=== PATIENT | female | born 1955 | race Caucasian/White ===

== ENCOUNTER 2023-10-12 08:53 | Outpatient (CLI) | payer MEDICARE, SELFPAY ==
[2023-10-31 17:08] VITALS: BMI 26.9
--- NOTE | 2023-10-31 17:08 | WPDHOMESLEEP ---
Sleep Study - Home Unattended Date of Study: 10/12/23 Ordering Provider: Ivet Jiang, PABerny Interpreting Provider: Arlet Johansen, DO Home Sleep Study Type: Watch PAT Height: 1.63 m Weight: 71.214 kg Body Mass Index: 26.9 Neck Circumference (inches): 13.5 [place]: 3 Reason for Sleep Study Witnessed apneas by spouse Sleep History The patient is a 68-year-old female that had a sleep study ordered by her primary care for evaluation of sleep apnea. The patient denies awakening from sleep short of breath. She occasionally awakens at night with heartburn, belching or cough. She occasionally snores but is never loud enough that others complain. She rarely has trouble breathing when she has a cold. She denies waking up gasping for air throughout the night. She occasionally has breathing problems at night observed by herself or others. She rarely sweats excessively at night. She occasionally has heart palpitations or irregular heartbeats during the night. She denies falling asleep during the day and while driving. She denies sleep paralysis, cataplexy and hypnagogic / hypnopompic hallucinations. She denies having trouble at school or work due to sleepiness. She denies feeling afraid of going to sleep. She rarely has nightmares. She occasionally remembers her dreams. She rarely has thoughts racing through her mind. She rarely feels sad or depressed. She occasionally has anxiety. She occasionally has muscular tension. She rarely notices parts of her body jerk. She denies kicking during the night. She occasionally has crawling and aching feelings in her legs but denies having leg pain during the night. She occasionally grinds her teeth during sleep and occasionally awakens with morning jaw pain. She is frequently bothered by pain during the day but rarely awakened by pain during the night. She constantly wakes up feeling stiff in the morning. She constantly wakes up with sore or achy muscles. She constantly wakes up with pain in the neck, spine and other joints. She goes to bed between 9-10 p.m. on both weekdays and weekends. It takes her 10-15 minutes to fall asleep. She wakes up 1-2 times throughout the night to urinate and is able to fall back asleep within 5-10 minutes. She wakes up between 7-8 a.m. on both weekdays and weekends. She typically gets 7-8 hours of sleep per night. She does not stay in bed after waking up in the morning. She currently lives alone. She denies consuming any caffeinated beverages within 2 hours of bedtime. She denies engaging in physical exercise before bedtime. She will read and watch television before falling asleep. She denies taking naps in the afternoon or the evening. She consumes 2 cups of coffee per day. She denies tobacco and alcohol use. She uses an unspecified recreational drug. Sleep Procedure The sleep study was completed using EnWavePAT a technically adequate device with seven channels: peripheral arterial tone, actigraphy, body position, snore, respiratory movement, pulse oximetry, sleep staging, and heart rate. Prior to using the device, the patient received verbal and written instructions for its application and was provided with the help desk phone number for additional telephonic instruction with 24-hour availability of qualified personnel to answer questions. The study was scored using CMS guidelines. Sleep Architecture The total recording time is 9 hrs, 56 min. The total sleep time is 8 hrs, 30 min. Sleep latency is 25 minutes. REM latency is 207 minutes. The patient had 13 episodes of waking. Sleep architecture shows 6.4% deep sleep, 81.6% light sleep, and (as % Total Sleep Time) showed NREM (Light 81.6%; Deep 6.4%), and a 12.0% stage REM. The patient spent 73.3% of total sleep time in the supine position. Sleep efficiency was 85.57%. Respiratory Analysis The overall AHI (pAHI 4%:) is 20.9. The central AHI is 10.7. The AHI was 22.0 in NREM and 12.7 in REM sleep. The A
== END 2023-10-16 13:37 | disposition home or self-care (01) ==
LOC: ANHCSM 08:53
PROVIDERS: PCP Physician Assistant; Visit Provider Physician Assistant
DX: G47.31 Primary central sleep apnea (principal)
CPT/HCPCS: 95800

== ENCOUNTER 2023-12-06 09:24 | Outpatient (CLI) | payer MEDICARE, SELFPAY ==
[2023-12-26 16:21] VITALS: BMI 26.9
--- NOTE | 2023-12-26 16:21 | WPDSLEEPSTUD ---
Sleep Study Date of Study: 12/06/23 Ordering Provider: Ivet Jiang, MARCOS Interpreting Physician: Arlet Johansen, Sleep Study Type: CPAP Titration Height: 1.63 m Weight: 71.214 kg Body Mass Index: 26.9 Neck Circumference (inches): 13 [place]: 3 Reason for Sleep Study The patient had a WatchPAT home sleep test on 10/12/2023 that showed an overall AHI of 20.9, JACK of 10.7 and desaturation down to 86%. Sleep History The patient is a 68-year-old female that had a sleep study ordered by her primary care for evaluation of sleep apnea. The patient denies awakening from sleep short of breath. She occasionally awakens at night with heartburn, belching or cough. She occasionally snores but is never loud enough that others complain. She rarely has trouble breathing when she has a cold. She denies waking up gasping for air throughout the night. She occasionally has breathing problems at night observed by herself or others. She rarely sweats excessively at night. She occasionally has heart palpitations or irregular heartbeats during the night. She denies falling asleep during the day and while driving. She denies sleep paralysis, cataplexy and hypnagogic / hypnopompic hallucinations. She denies having trouble at school or work due to sleepiness. She denies feeling afraid of going to sleep. She rarely has nightmares. She occasionally remembers her dreams. She rarely has thoughts racing through her mind. She rarely feels sad or depressed. She occasionally has anxiety. She occasionally has muscular tension. She rarely notices parts of her body jerk. She denies kicking during the night. She occasionally has crawling and aching feelings in her legs but denies having leg pain during the night. She occasionally grinds her teeth during sleep and occasionally awakens with morning jaw pain. She is frequently bothered by pain during the day but rarely awakened by pain during the night. She constantly wakes up feeling stiff in the morning. She constantly wakes up with sore or achy muscles. She constantly wakes up with pain in the neck, spine and other joints. She goes to bed between 9-10 p.m. on both weekdays and weekends. It takes her 10-15 minutes to fall asleep. She wakes up 1-2 times throughout the night to urinate and is able to fall back asleep within 5-10 minutes. She wakes up between 7-8 a.m. on both weekdays and weekends. She typically gets 7-8 hours of sleep per night. She does not stay in bed after waking up in the morning. She currently lives alone. She denies consuming any caffeinated beverages within 2 hours of bedtime. She denies engaging in physical exercise before bedtime. She will read and watch television before falling asleep. She denies taking naps in the afternoon or the evening. She consumes 2 cups of coffee per day. She denies tobacco and alcohol use. She uses an unspecified recreational drug. Sleep Procedure A full night polysomnogram using the [employer] multi-channel system recorded the standard physiologic parameters including EEG, EOG, submentalis EMG, anterior tibialis EMG, EKG, body position, nasal and oral airflow using PAP device flow signal.? Respiratory parameters of chest and abdominal movements were recorded with Respiratory Inductance Plethysmography belts. Oxygen saturation was recorded by pulse oximetry. Video monitoring was also performed. Sleep stages, periodic limb movements, and EEG arousals were scored in 30 second epochs according to the criteria of the AASM Scoring Manual. The Apnea-Hypopnea Index was calculated using CMS guidelines for definition of hypopnea with 4% O2 desaturations while scoring respiratory events. Sleep Architecture The total recording time was 530.9 minutes.? The total sleep time was 424.5 minutes. Sleep latency was 12.7 minutes. REM latency was 460.0 minutes. Sleep efficiency was 80.0%. The patient had 95 awakenings for an awakening index of 13.4. Wake after Sl
== END 2023-12-07 07:20 | disposition home or self-care (01) ==
LOC: ANHCSM 09:39
PROVIDERS: PCP Physician Assistant; Visit Provider Physician Assistant
DX: G47.31 Primary central sleep apnea (principal); G47.37 Central sleep apnea in conditions classified elsewhere
CPT/HCPCS: 95811

== ENCOUNTER 2023-12-07 07:24 | Outpatient (CLI) | payer MEDICARE, SELFPAY ==
--- NOTE | 2023-12-07 | ECHO_ITS ---
Patient Info Name: Jessica Simmons Age: 68 years : 1955 Gender: Female Ht: 64 in Wt: 157 lbs BSA: 1.81 m2 HR: 67 bpm BP: 158 / 83 mmHg Heart Rhythm: Sinus Rhythm Technical Quality: Fair Exam Date: 12/07/2023 7:53 AM Exam Location: Echo Lab Patient Status: Outpatient Admit Date: 12/07/2023 Staff Ordering Physician: AnaliIvet PA-C Paper Spooler: David Banda RDCS Attending Provider: Anali*Ivet Singer PA-C Exam Type: CA echo doppler color flow Study Info Indications - sleep apnea Complete two-dimensional, color flow and Doppler transthoracic echocardiogram is performed. Summary 1. Complete two-dimensional, color flow and Doppler transthoracic echocardiogram is performed. 2. Normal appearing aortic valve with mild aortic regurgitation. 3. Otherwise unremarkable echocardiogram. 4. No evidence of pulmonary hypertension(patient with sleep apnea). Left Ventricle Left ventricular chamber dimension is normal. Left ventricular systolic function is normal, estimated at 60-65%. The left ventricular diastolic function is normal. Right Ventricle Right ventricular chamber dimension is normal. Left Atria Left atrial chamber dimension is normal. Right Atria Right atrial chamber dimension is normal. Aortic Valve The aortic valve is normal. There is mild aortic valve regurgitation. Pulmonic Valve The pulmonic valve is normal. Mitral Valve The mitral valve has normal leaflets. Tricuspid Valve The tricuspid valve leaflets are normal. Pericardium/Pleural The pericardium appears normal. Aorta The aortic root size at the sinus of Valsalva is normal. Left Ventricular Outflow Tract Name Value Normal LVOT 2D LVOT Diameter 2.0 cm LVOT Doppler LVOT Peak Gradient 5 mmHg LVOT Mean Gradient 3 mmHg LVOT VTI 26 cm LVOT VTI/AV VTI Ratio 1.0 LVOT Stroke Volume 80 ml LVOT CO 5.2 l/min LVOT CI 2.9 l/min/m2 Pulmonic Valve Name Value Normal PV Doppler PV Peak Gradient 3 mmHg PV Regurgitation Doppler NH Peak End Diastolic Velocity 96 cm/s Mitral Valve Name Value Normal MV Doppler MV Peak Gradient 3 mmHg MV Mean Gradient 1 mmHg MV Decel Saline 439 cm/s2 MV PHT 60 ms MV Area (PHT) 3.7 cm2 4.0-5.0 MV Area
== END 2023-12-07 07:25 | disposition home or self-care (01) ==
PROVIDERS: PCP Physician Assistant; Visit Provider Physician Assistant
DX: G47.30 Sleep apnea, unspecified (principal)
CPT/HCPCS: 93306

== ENCOUNTER 2024-04-05 10:45 | Outpatient (CLI) | payer MEDICARE, SELFPAY ==
--- NOTE | ~2024-04-05 | XR_ITS ---
Clinical Indication: Cough PA and lateral views of the chest: Comparison: None Findings: The lungs are clear, without evidence of focal consolidation or pleural effusion. Calcified right hilar lymph nodes present. Cardiomediastinal silhouette is otherwise within normal limits. Pro bable prominent loose body at the subscapularis recess of the right glenohumeral joint measuring 2.3 cm. Impression: Clear lungs. Calcified right hilar lymph nodes. Right glenohumeral joint loose body, as above. Reviewed, dictated and finalized at location M. PEDIATRICIAN Impression: Clear lungs. Calcified right hilar lymph nodes. Right glenohumeral joint loose body, as above.
== END 2024-04-05 10:46 | disposition home or self-care (01) ==
PROVIDERS: PCP Physician Assistant; Visit Provider Physician Assistant
DX: R05.9 Cough, unspecified (principal); M24.011 Loose body in right shoulder
CPT/HCPCS: 71046

== ENCOUNTER 2024-08-08 11:14 | Outpatient (CLI) | payer MEDICARE, SELFPAY ==
--- NOTE | ~2024-08-08 | MM_ITS ---
EXAMINATION: MM screening [facility] BI w kevin HISTORY: Screening TECHNIQUE: Craniocaudal and mediolateral oblique 3-D tomosynthesis images were obtained and synthetic 2-D images were generated. CAD analysis was submitted and interpreted. COMPARISON: Comparison to multiple prior studies sequentially, with oldest reviewed study dated 08/11. BREAST PARENCHYMAL COMPOSITION: Not dense: There are scattered areas of fibroglandular density. FINDINGS: There is no evidence of suspicious mass, calcification, or architectural distortion to sugg est malignancy in either breast. There has been no suspicious interval change. IMPRESSION: 1. No mammographic evidence of malignancy. 2. Recommend routine screening mammography in one year. BI-RADS Category 1: Negative Reviewed, dictated and finalized at location A.
== END 2024-08-08 11:15 | disposition home or self-care (01) ==
LOC: MICIMG 11:15
PROVIDERS: PCP Physician Assistant; Visit Provider Advanced Practice Midwife
DX: Z12.31 Encounter for screening mammogram for malignant neoplasm of breast (principal)
CPT/HCPCS: 77063; 77067

== ENCOUNTER 2024-08-15 17:00 | Emergency (ER) | payer MEDICARE, SELFPAY ==
--- NOTE | ~2024-08-15 | XR_ITS ---
XR wrist RT min 3V Ordering provider: PARIS Harris History: . fall today. distal radius pain . Comparison: None. FINDINGS: BONES: Fracture in the distal metaphysis of the right radius with extension to the joint space. Fract ure of the ulnar styloid styloid. Widening of the distance between the scaphoid and lunate which may indicate ligamentous injury. JOINT SPACES: Narrowing of the radiocarpal joint. SOFT TISSUES: Normal. IMPRESSION: Fracture of the distal radius. Fracture of the ulnar styloid. Widening of the distance between the sc aphoid and lunate which may indicate ligamentous injury. Reviewed, dictated and finalized at location A. IMPRESSION: Fracture of the distal radius. Fracture of the ulnar styloid. Widening of the d istance between the scaphoid and lunate which may indicate ligamentous injury.
[2024-08-15 17:19] VITALS: BP 154/68; PULSE 78; RESP 16; TEMP 37; O2SAT 98
--- NOTE | 2024-08-15 17:24 | ED_ITS ---
HPI - Extremity Injury (Upper) General Chief Complaint: Extremity Injury, Upper Stated Complaint: Injured Right Wrist Time Seen by Provider: 08/15/24 17:17 Source: patient and RN notes reviewed Mode of arrival: ambulatory Limitations: no limitations History of Present Illness HPI narrative: Patient presents today with a right wrist injury. Approximately 1 hour prior to arrival, patient fell onto an outstretched hand from a 2-3 foot height. Denies numbness or tingling. She currently rates her pain 5/10. No [id number] treatment prior to arrival. Related Data Home Medications ?Medication ?Instructions ?Recorded ?Confirmed ?Last Taken ?Type buspirone 15 mg tablet mg 08/15/24 Unknown History citalopram 20 mg tablet mg 08/15/24 Unknown History citalopram 40 mg tablet mg 08/15/24 Unknown History estradiol 0.01% (0.1 mg/gram) vaginal 08/15/24 Unknown History vaginal cream levothyroxine 75 mcg tablet mcg 08/15/24 Unknown History Allergies Allergy/AdvReac Type Severity Reaction Status Date / Time No Known Allergies Allergy Verified 08/15/24 18:20 Review of Systems Review of Systems: CONSTITUTIONAL: Denies body aches, fever, chills, or sweats. EYES: Denies visual changes, redness, or discharge. ENT: Denies rhinorrhea, congestion, sore throat, or otalgia. CARDIOVASCULAR: Denies chest pain, palpitations, or edema. RESPIRATORY: Denies cough or dyspnea. GASTROINTESTINAL: Denies abdominal pain, nausea, vomiting, or diarrhea. GENITOURINARY: Denies dysuria or hematuria. SKIN: Denies rash, itching, or wounds. MUSCULOSKELETAL: + right wrist injury. NEUROLOGIC: Denies headache, numbness, tingling, or weakness. PSYCH: Denies depression or anxiety. PMFSH Comments At time of signature, I have reviewed and agree with nursing past medical, surgical, social and family history unless otherwise noted. Please see nursing chart for further information. There is no relevant family history pertinent to the presenting complaint Exam Narrative: GENERAL: Well-appearing, well-nourished, and in no acute distress. HEAD: Normocephalic, atraumatic. EYES: EOMI. No redness or drainage. Conjunctivae normal. ENT: Mucous membranes pink and moist. NECK: Normal AROM. CHEST: No respiratory distress. EXTREMITIES: Right wrist: Significant swelling to the dorsum of the wrist with tenderness mostly to the distal radius with mild ecchymosis. No tenderness to the hand or fingers. No tenderness to the remainder of the forearm. Distal sensation intact. Capillary refill normal. Radial pulse normal. No snuffbox tenderness. Decreased range of motion due to pain and swelling. Mild deformity noted. SKIN: Warm, dry, no rash. Capillary refill normal. Normal skin turgor. NEURO: No focal deficits. Alert and oriented x3. Gait steady. PSYCH: Normal affect. No signs of depression or anxiety. Course Course Level of Care: Express Care Visit Vital Signs Vital signs: Vital Signs Temperature 98.6 F 08/15/24 17:19 Pulse Rate 78 08/15/24 17:19 Respiratory Rate 16 08/15/24 17:19 Blood Pressure 154/68 H 08/15/24 17:19 Pulse Oximetry 98 08/15/24 17:19 Oxygen Delivery Room Air 08/15/24 17:19 Temperature 98.6 F 08/15/24 17:19 Pulse Rate 78 08/15/24 17:19 Respiratory Rate 16 08/15/24 17:19 Blood Pressure 154/68 H 08/15/24 17:19 Pulse Oximetry 98 08/15/24 17:19 Oxygen Delivery Room Air 08/15/24 17:19 Reviewed Procedures Orthopedic Splinting/Casting Injury #1: Splinting/Casting Date: 08/15/24 Splinting/Casting Time: 18:16 Side: right Upper Extremity Injury Location: wrist OCL: sugar tong Pre-Procedure Neuro Vascular Exam: normal Post-Procedure Neuro Vascular Exam: normal Other Orthopedic Equipment: other (sling) Additional Comments: Placed by tech [facility] - Extremity Injury (Upper) [facility] Narrative Medical decision making narrative: X-ray shows fracture of distal radius and ulnar styloid. Also shows possible ligamentous injury. Patient will be placed in a sugar-tong OCL and sling with recommendation for orthopedic follow-up. Prescription for [place] sent to pharmacy. Anticipatory guidance given. Differential Diagnosis Differential diagnosis: Likely sprain and strain of wrist and fracture of wrist Imaging Data Radiologist's impression: ITS Impressions Wrist X-Ray 08/15/24 17:50 IMPRESSION: Fracture of the distal radius. Fracture of the ulnar styloid. Widening of the distance between the scaphoid and lunate which may indicate ligamentous injury. Critical Care Time Critical Care Time Critical Care Time: No Discharge Plan Discharge Clinical Impression: Distal radius fracture, right Qualifiers: Encounter type: initial encounter Fracture type: closed Fracture morphology: unspecified fracture morphology Qualified Code(s): S52.501A - Unspecified fracture of the lower end of right radius, initial encounter for closed fracture Fracture of ulnar styloid Qualifiers: Encounter type: initial encounter Fracture type: closed Fracture alignment: nondisplaced Laterality: right Qualified Code(s): S52.614A - Nondisplaced fracture of right ulna styloid process, initial encounter for closed fracture Patient Disposition: Home Condition: Stable Instructions: Wrist Fracture in Adults (ED) Additional Instructions: Your x-ray shows a fracture of your radius and tip of your ulna. It also shows a possible ligament injury. You have been placed in a temporary splint. Please keep this dry and intact until follow-up with orthopedics. Elevate and ice your wrist. Take Tylenol or ibuprofen for mild pain. Take the Norcofor more severe pain. Call and schedule a follow-up visit as soon as possible. Your blood pressure was elevated above 120/80 today at Urgent Care. This puts you above the threshold for follow up. Please schedule a followup visit with your personal physician as soon as possible, for further evaluation and treatment. Even blood pressure exceeding 120/80 may indicate pre-hypertension. Patient Language: Ukrainian Prescriptions: New hydrocodone-acetaminophen 5-325 mg tablet 1 tablet PO Q8H PRN (Reason: pain) Qty: 10 0RF No Action citalopram 20 mg tablet buspirone 15 mg tablet citalopram 40 mg tablet levothyroxine 75 mcg tablet estradiol 0.01 % (0.1 mg/gram) cream VAGINAL Follow-up/Referrals: PHYSICIAN,ENVIRONMENTAL CHANGE ANALYST [Primary Care Provider] - Luís Díaz MD [Physician] - Time of Disposition: 18:22
== END 2024-08-15 18:33 | disposition home or self-care (01) ==
PROVIDERS: Emergency Provider Nurse Practitioner
DX: S52.614A Nondisplaced fracture of right ulna styloid process, initial encounter for closed fracture (principal); S52.501A Unspecified fracture of the lower end of right radius, initial encounter for closed fracture; W18.30XA Fall on same level, unspecified, initial encounter
CPT/HCPCS: 29125; 73110; 99214; A4565; G0463

== ENCOUNTER 2024-08-22 14:37 | Outpatient (CLI) | payer MEDICARE, SELFPAY ==
--- NOTE | ~2024-08-22 | XR_ITS ---
XR chest 2V Ordering provider: Ivet Jiang, MARCOS History: 69 years Female with . COUGH . Comparison: April 05, 2024 FINDINGS: MEDIASTINUM: The cardiac silhouette is not enlarged. Calcified right hilar lymph node. LUNGS: No infiltrates, effusions or pneumothorax. OTHER: No free air under the diaphragm. IMPRESSION: No acute cardiopulmonary pathology. Reviewed, dictated and finalized at location A.
== END 2024-08-22 14:38 | disposition home or self-care (01) ==
PROVIDERS: PCP Physician Assistant; Visit Provider Physician Assistant
DX: R05.1 Acute cough (principal)
CPT/HCPCS: 71046

== ENCOUNTER 2024-08-27 00:46 | Day surgery (SDC) | payer MEDICARE, SELFPAY ==
[2024-08-23 11:41] VITALS: BMI 27.6
--- NOTE | 2024-08-23 12:00 | PC.NURSE ---
Report to the Outpatient Waiting Room, entrance under the green pavilion located off [facility], at time __11:00AM on date ___08/27/24____. Planned Procedure Time: ___1:00PM .? Time changes happen often and if your time is changed the preop area will call you the afternoon before. - You and your visitor will be asked to self-screen and do not enter if you have any COVID symptoms. Please call surgeon if you need to reschedule. - A mask is optional within the hospital at this time. Patients may have clear liquids (water, carbonated beverages, clear teas, apple juice) until 3 hours prior to surgery (10:00AM) with a maximum of 20 ounces. - No food from midnight until time of surgery and no smoking, or chewing tobacco (or any form of nicotine). No chewing gum, candy or mints. Take only the following medications with a SIP of water on the morning of surgery: ___AUGMENTIN, BUSPIRONE, LEVOTHYROXINE. HYDROCODONE NEEDED FOR PAIN DO NOT STOP ANY OF YOUR OTHER PRESCRIPTION MEDICATIONS PRIOR TO SURGERY EXCEPT THE FOLLOWING Hold all vitamins and supplements for 3 days per anesthesiologist.-LAST DOSE 08/23/24. Please no make-up, nail romansh, hairspray, perfume, deodorant, or body powder the day of surgery.? No jewelry (including any body piercings) or valuables the day of surgery, leave them at home.? Please take a shower or bath the night before, or the morning of, surgery with an antibacterial soap.? Wear comfortable, loose fitting clothing.? - Jewelry must be removed prior to entering the operating room.? Rings and piercings that are not removed may be cut off. - The hospital will not accept responsibility for valuables.? - Please leave all valuables, including medications, at home the day of surgery. If you are going home after surgery, a licensed compressed air pile driver operator must drive you home.? - NO public transportation without another adult if you receive anesthesia. - We recommend that an adult stay with you for 24 hours following discharge. - We also recommend that you do not drive, make important decision, drink alcoholic beverages, or take any drugs that were not prescribed by your health care provider for at least 24 hours after your discharge time. Follow any additional instructions given to you from your surgeon. Telephone instructions given to ____PATIENT and asked if any additional questions and then verbalized understanding. Patient advised to call surgeon office or pre surgery nurse liaison [phone] if any additional questions.
[2024-08-27] VITALS (7 sets, daily range): BP systolic 116–179; BP diastolic 64–101; PULSE 73–86; RESP 15–18; TEMP 36.1–36.8; O2SAT 96–100; BMI 28.5
--- NOTE | ~2024-08-27 | XR_ITS ---
EXAMINATION: XR surgery orthopedic DATE: 08/27/2024 13:00 CDT INDICATION: ORIF RIGHT WRIST . TECHNIQUE: 4 fluoroscopic images of the right wrist were obtained during ORIF right wrist, performed by Yosef Ramirez MD. I was not present during the procedure. Fluoroscopy exposure time was 504.8 seconds. Air Kerma 6.34 mGy. DAP 0.00974 mGym2. COMPARISON: 08/15/2024 FINDINGS/IMPRESSION: Fluoroscopic documentation of ORIF right wrist. Please refer to the operative note for complete proce dural details . Reviewed, dictated and finalized at location K.
--- OUTSIDE RECORDS SUMMARY | 2024-08-27 00:49 | XMS_ITS | Data Portability ---
Author Organization [place] - [facility], Main Office Address [address] [place] [address] Care Team Providers Care Education Administrator Name Role Phone AYALA VALLES Primary Care Provider [phone] AYALA VALLES Referring Provider [phone] Assessment Encounter Date Assessment Date Assessment LastModified by Organization Details LastModified Time 02/06/2023 02/06/2023 This note is dictated and transcribed by [employer]. Supervisor Advice variances may occur. Despite proofreading, typographical errors may occur. Not available 02/06/2023 10:22:35 02/27/2023 02/27/2023 This note is dictated and transcribed by [employer]. Supervisor Advice variances may occur. Despite proofreading, typographical errors may occur. Not available 02/27/2023 09:52:44 06/23/2023 06/23/2023 HPI: Patient returns. She is here for 5 year routine x-ray surveillance of her right total hip arthroplasty. This was done in 2018. The hip is doing well for her. She is having no complaints of problems with the. Physical exam: Patient is walking very well today. She has full range of motion of the right hip without any discomfort. Impression: Patient's right total hip arthroplasty looks excellent on the x-rays. Patient is very happy with her results. She should be seen in another 5 years for continued x-ray surveillance or sooner if she develops symptoms. [email or web address] Not available 06/23/2023 09:27:54 Plan of Treatment Reminders Order Date Submit Date Provider Last Modified By Organization Details Last Modified Time Details Appointments None recorded. Lab None recorded. Referral None recorded. Procedures None recorded. Surgeries None recorded. Imaging XR, hip + pelvis, unilateral 2023 024 [email or web address] [facility] [place], [address], [place], [address], 4 14:19:07 XR, foot, 3 or more view 2023 024 [email or web address] [facility] [place], [address], [place], [address], 4 10:29:40 XR, foot, 3 or more view 2022 023 [email or web address] [facility] [place], [address], [place], [address], 3 09:30:41 XR, foot, 3 or more view 2022 023 [email or web address] [facility] [place], [address], [place], [address], 3 09:54:32 XR, foot, 3 or more view 2022 023 [email or web address] 7 [facility] [place], [address], [place], [address], 3 10:23:29 Medication Orders None recorded. Patient TargetsNo targets recorded. Patient InstructionsNo instructions recorded. Reason for Referral None Reported. Results Created Date Observation Date Name Description Value Unit Range Abnormal Flag Note LastModifiedBy Organization Detail LastModifiedTime 01/10/20 XR, foot, 3 or more view No observ ation record ed. [email or web address] [facility] [place] [address], [place], [address], 01/09/2023 11:37:11 02/07/20 23 XR, foot, 3 or more view No observ ation record ed. [email or web address] [facility] [place] [place] [address], [place], [address], 02/06/2023 10:23:27 02/28/20 23 XR, foot, 3 or more view No observ ation record ed. [email or web address] [facility] [place] [address], [place], [address], 02/27/2023 09:54:31 03/27/20 23 XR, foot, 3 or more view No observ ation record ed. [email or web address] [facility] [place] [address], [place], [address], 03/27/2023 09:30:41 03/29/20 23 03/29/2023 MAMMO , scree lili, digit al, bilat eral No observ ation record ed. [email or web address] [facility] [address] [facility], [place], [address], 04/04/2023 10:08:13 03/29/20 23 03/29/2023 DEXA No observ ation record ed. [email or web address] [address], [place], [address], 04/04/2023 10:08:13 05/08/19 24 XR, foot, 3 or more view No observ ation record ed. [email or web address] [facility] [place] [facility] [place] [address], [place], [address], 05/08/2023 10:29:39 06/23/19 24 XR, hip + pelvi s, unila teral No observ ation record ed. [email or web address] [facility] [place] [place] [facility] [place] [address], [place], [address], 06/23/2023 09:27:09 Result Notes None recorded. Problems Name Problem SNOMED Code Status Onset Date Resolution Date Notes Provider Name and Address Organization Details Recorded Time Radiothera py follow-up 986184537 Active Not Available [facility] 3 09:28:16 Localized, primary osteoarthr itis of the shoulder region 667960329 Active Not Available [facility] 3 09:28:16 Localized, primary osteoarthr itis of the pelvic region and thigh 704325254 Active Not Available [facility] 3 09:28:16 Generalize d anxiety disorder 97332484 Active 2021 BRANDEN Nicholas, [facility] 3 12:24:33 Gastroesop hageal reflux disease 201617661 Active 2017 Not Available [facility] 3 09:28:16 Maldonado's neuroma of left foot 9792341938294 05 Active 2020 Not Available [facility] 3 09:28:16 Osteoarthr itis 498348125 Active Not Available [facility] 3 09:28:16 Hypothyroi dism 17465566 Active 2017 Not Available [facility] 3 09:28:16 Hyperlipid emia 38638109 Active 2022 SAMMI Salmon [address], [place], [address] , [facility] 3 12:49:55 Blood glucose outside reference range 478669668 Active 2022 SAMMI Salmon [address], [place], [address] , [facility] 3 12:50:01 Injury of right foot 749786033 Active 2022 SAMMI Salmon [address], [place], [address] , [facility] 3 09:27:52 Closed fracture of fifth metatarsal bone 68909586 Active 2022 SAMMI Salmon [address], [place], [address] , [facility] [employer] 3 12:14:26 Pain of toe of left foot 7604592657392 08 Active 2022 David Lewis DPM [address], [place], [address] , [facility] [employer] [facility] [employer] 3 09:52:49 Problem Notes None recorded. Procedures Surgical History Date Name Laterality Status Provider Name and Address Organization Details Recorded Time 2 colonoscopy completed Not Available [facility] 06/30/19 23 09:13:07 8 other completed Not Available [facility] 3 09:13:07 Hernia Repair completed Not Available [facility] 06/29/2022 09:13:07 Imaging Results Imaging Date Name Status [facility] Details LastModified Time 01/09/2023 XR, foot, 3 or more view completed [email or web address] [place] [address] [facility] [place] [address], [place], [address], 01/09/2023 11:37:11 02/06/2023 XR, foot, 3 or more view [email or web address] [place] [address], [place], [address], 02/06/2023 10:23:27 02/27/2023 XR, foot, 3 or more view completed [email or web address] [facility] [place] [address], [place], [address], 02/27/2023 09:54:31 03/27/2023 XR, foot, 3 or more view completed [email or web address] [facility] [place] [address], [place], [address], 03/27/2023 09:30:41 03/29/2023 MAMMO, screening, digital, bilateral completed [email or web address] [facility] [address], [place], [address], 04/04/2023 10:08:13 03/29/2023 DEXA completed [email or web address] [facility] [address], [place], [address], 04/04/2023 10:08:13 05/08/2023 XR, foot, 3 or more view completed [email or web address] [facility] [place] [address] [facility] [address] [facility] [address], [place], [address], 05/08/2023 10:29:39 06/23/2023 XR, hip + pelvis, unilateral completed [email or web address] [facility] [place] [address] [facility], [place], [address], 06/23/2023 09:27:09 Procedure Notes None recorded. Medical Equipment None Reported. Allergies No known drug allergies Medications Name Sig Start Date Stop Date Status Note LastModified by Organization Details LastModified Time Arthrotec 75 75 mg-200 mcg tablet,melisa m-coated Take 1 tablet twice a day by oral route. 03/05 completed Not Available Not Available Not Available amoxicilli n 500 mg capsule TAKE 4 CAPSULES BY MOUTH 1 HOUR PRIOR TO APPOINTM ENT 01/04 completed Not Available Not Available Not Available prednisone 10 mg tablet 06/19 completed Not Available Not Available Not Available fluconazol e 150 mg tablet 06/19 completed Not Available Not Available Not Available valacyclov ir 1 gram tablet TAKE 1 TABLET BY MOUTH THREE TIMES A DAY FOR 7 DAYS 03/05 completed Not Available Not Available Not Available hydrocodon e 5 mg-acetami nophen 325 mg tablet 03/05 completed as needed Not Available Not Available Not Available prednisone 20 mg tablet 06/19 completed Not Available Not Available Not Available acyclovir 400 mg tablet TAKE 1 TAB TWICE A DAY DAILY FOR SUPPRESI VE THERAPY active Not Available Not Available No t Available amoxicilli n 500 mg tablet TAKE 4 TABLETS BY MOUTH 1 HOUR BEFORE DENTAL APPOINTM ENT 12/21 completed Not Available Not Available Not Available levothyrox ine 75 mcg tablet TAKE 1 TABLET BY MOUTH EVERY DAY active Not Available Not Available No t Available nystatin-t riamcinolo ne 100,000 unit/gram- 0.1 % topical ointment 12/21 completed Not Available Not Available Not Available levothyrox ine 100 mcg tablet 06/19 completed Not Available Not Available Not Available oxycodone- acetaminop hen 5 mg-325 mg tablet 03/05 completed Not Available Not Available Not Available citalopram 20 mg tablet TAKE 1 TABLET BY MOUTH TWICE A DAY active Not Available Not Available No t Available tobramycin 0.3 % eye drops 06/19 completed Not Available Not Available Not Available ranitidine 150 mg tablet Take 1 tablet twice a day by oral route. 03/05 completed Not Available Not Available Not Available diclofenac 50 mg-misopro stol 200 mcg tablet,imm ed.and delayed release 06/19 completed Not Available Not Available Not Available clobetasol 0.05 % topical ointment APPLY A THIN LAYER TO THE AFFECTED AREA(S) 2 TIMES PER DAY FOR 2 WEEKS THEN ONCE DAILY. 12/22 completed Not Available Not Available Not Available levofloxac in 500 mg tablet TAKE 1 TABLET BY MOUTH EVERY 24 HOURS FOR 7 DAYS 11/19 completed Not Available Not Available Not Available estradiol 0.01% (0.1 mg/gram) vaginal cream INSERT 0.5G VAGINALL Y EACH NIGHT FOR 2 WEEKS THEN DECREASE TO 0.5G VAGINALL Y 2-3X/WEE K. active Not Available Not Available No t Available methylpred nisolone 4 mg tablets in a dose pack TAKE 6 TABLETS ON DAY 1 DIRECTED ON PACKAGE AND DECREASE BY 1 TAB EACH DAY FOR A TOTAL OF 6 DAYS 03/05 completed Not Available Not Available Not Available Vitamin D2 1,250 mcg (50,000 unit) capsule 06/19 completed Not Available Not Available Not Available Flexeril 10 mg tablet Take 1 tablet 3 times a day by oral route as needed. 12/22 completed Not Available Not Available Not Available buspirone 15 mg tablet TAKE 1 TABLET BY MOUTH TWICE A DAY active Not Available Not Available No t Available biotin 05/07 completed Not Available Not Available Not Available famotidine 2019 active Not Available Not Available Not Avai lable Vitamin D3 2019 active Not Available Not Available Not Avai lable Zyrtec 2019 active Not Available Not Available Not Avai lable Daily Multi-Yanique min 03/05 completed Not Available Not Available Not Available Vitamin D3 50 mcg (2,000 unit) capsule Take 1 capsule every day by oral route. 03/05 completed Not Available Not Available Not Available Shingrix (PF) 50 mcg/0.5 mL intramuscu lar suspension , kit PHARMACY ADMINIST ERED 05/07 completed Not Available Not Available Not Available ID NOW COVID-19 Test Kit TEST DIRECTED 11/19 completed Not Available Not Available Not Available Vitals Date Recorded Body height Body mass index (BMI) Body weight Heart rate Respiratory rate Oxygen saturation Oxygen saturation in Arterial blood by Pulse oximetry Systolic blood pressure Diastolic blood pressure Provider Name and Address Organization Details Last Updated DateTime 3 162.56 cm 28 kg/m2 97424.5 6 g 97 /min 14 /min 99 % 99 % 144 mm[Hg] 80 mm[Hg] Ethel Brantley [facility] 3 09:22:39 Date Recorded Body height Body mass index (BMI) Body weight Heart rate Respiratory rate Oxygen saturation Oxygen saturation in Arterial blood by Pulse oximetry Systolic blood pressure Diastolic blood pressure Provider Name and Address Organization Details Last Updated DateTime 3 162.56 cm 28 kg/m2 47812.5 6 g 73 /min 14 /min 99 % 99 % 138 mm[Hg] 77 mm[Hg] Ethel Brantley [facility] 3 09:08:25 Date Recorded Body height Body mass index (BMI) Body weight Heart rate Respiratory rate Oxygen saturation Oxygen saturation in Arterial blood by Pulse oximetry Systolic blood pressure Diastolic blood pressure Provider Name and Address Organization Details Last Updated DateTime 3 162.56 cm 28 kg/m2 64114.5 6 g 76 /min 14 /min 98 % 98 % 149 mm[Hg] 76 mm[Hg] Ethel Brantley [facility] [employer] [facility] 3 09:02:14 Date Recorded Body height Body mass index (BMI) Body weight Heart rate Respiratory rate Oxygen saturation Oxygen saturation in Arterial blood by Pulse oximetry Systolic blood pressure Diastolic blood pressure Provider Name and Address Organization Details Last Updated DateTime 4 162.56 cm 28 kg/m2 69204.5 6 g 83 /min 14 /min 98 % 98 % 131 mm[Hg] 74 mm[Hg] Ethel Fercho [facility] [employer] [facility] 4 08:56:54 Date Recorded Body height Body mass index (BMI) Body weight Provider Name and Address Organization Details Last Updated DateTime 06/23/2023 162.56 cm 27.6 kg/m2 08141.37 g [employer] [facility] [employer] [facility] 06/23/2023 09:10:17 Social History Question Answer Notes LastModified by Organizat ion Details LastModified Time Tobacco Smoking Status Former Smoker Nieves Cory palmer, [facility] [employer] [facility] 03/27/2023 08:58:08 What Is Your Level Of Alcohol Consumption? Occasional [id number] Information not available 06/29/2022 What Is Your Level Of Caffeine Consumption? Moderate [id number] Information not available 06/29/2022 How Much Tobacco Do You Chew? None [id number] Information not available 06/29/2022 In The 14 Days Before Symptom Onset, Have You Had Close Contact With A Laboratory-confir med COVID-19 While That Case Was Ill? No [email or web address] Information not available 03/27/2023 In The 14 Days Before Symptom Onset, Have You Had Close Contact With A Person Who Is Under Investigation For COVID-19 While That Person Was Ill? No [email or web address] Information not available 03/27/2023 Are You Currently Employed? Yes [email or web address] Information not available 03/27/2023 What Type Of Diet Are You Following? REGULAR [id number] Information not available 06/29/2022 Which Illicit Or Recreational Drugs Have You Used? None [email or web address] Information not available 03/27/2023 Do You Or Have You Ever Used E-cigarettes Or Vape? 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 No [email or web address] Information no t available 03/27/2023 Do You Use Insect Repellent Routinely? No [email or web address] Information not available 03/27/2023 What Was The Date Of Your Most Recent Tobacco Screening? 12/21/2021 [email or web address] Information not available 03/27/2023 What Is Your Relationship Status? [id number] Information not available 06/29/2022 Do You Use Your Seat Belt Or Car Seat Routinely? Yes [email or web address] Information not available 03/27/2023 Do You Have Smoke And Carbon Monoxide Detectors In Your Home? Yes [email or web address] Information not available 03/27/2023 Do You Or Have You Ever Used Smokeless Tobacco? Never Used Smokeless Tobacco [id number] Information not available 06/29/2022 Do You Use Sunscreen Routinely? Yes [email or web address] Information not available 03/27/2023 Have You Recently Traveled Abroad? No [email or web address] Information not available 03/27/2023 Do You Have Any Dietary Restrictions? No Information not available 03/27/2023 Do You Or Have You Ever Used Any Other Forms Of Tobacco Or Nicotine? No [email or web address] Information not available 03/27/2023 Sex: Unknown Functional Status Question Answer Note LastModified by Organizat ion Details LastModified Time Are you able to care for yourself? Yes [email or web address] Information not available 03/27/2023 What is your exercise level? Occasional [id number] Information not available 06/29/2022 Mental Status None recorded. Family History Relationship Description Onset Age of this Age Resolved Age Notes LastModified by Organization Details LastModified Time Mother Congestive heart failure [email or web address] Not available 06/23 09:00:28 Mother Chronic obstructive pulmonary disease [email or web address] Not available 06/23 09:00:28 Father Neoplasm of brain [email or web address] Not available 06/23 09:00:28 Unspecified Relation Asthma Child [id number] Not available 06/29/2022 09:13:08 Brother Diabetes mellitus [id number] Not available 06/29/2022 09:13:08 Sister Urinary bladder stone [email or web address] Not available 06/23 09:00:28 Sister Hypertensive disorder [email or web address] Not available 12/22 12:28:28 Maternal Grandmother Malignant neoplasm of uterus [email or web address] Not available 06/23 09:00:28 Medical History Condition Response THYROID DISEASE Y EYE PROBLEMS Y ANXIETY DISORDER Y HYPOTHYROIDISM Y USE OF NSAIDS Y BACK / NECK PROBLEMS Y DEPRESSION (INCLUDING POST ) Y HEARTBURN / REFLUX Y Gynecological History Statement/Question Response Abnormal Pap Y Date of Last Mammogram 01/30/2022 Date of Last Colonoscopy Most Recent Bone Density Sexually Active? N Menses Monthly N Date of Last Pap 05/01/2019 Obstetrics History GPAL:G 2 P 0 0 0 2 Type Value Living 2 Total 2 Immunizations Vaccine Type Date Status Note Provider Nam e and Address Organization Details Recorded Time COVID-19, mRNA, LNP-S, PF, 30 mcg/0.3 mL dose 02/21/2022 completed Not Available [facility] 3 09:19:37 Influenza, high-dose, quadrivalent, PF 02/21/2022 completed Not Available [facility] 3 09:19:37 Past Encounters Encounter ID Performer Location Encounter Start Date Encounter Closed Date Diagnosis/Indication Diagnosis SNOMED-CT Code Diagnosis ICD10 Code Diagnosis Note [id number] [facility] [address] [place] [address] 08/04/2020 00:00:00 08/04/2020 17:41:12 [id number] [facility] [place] [address] [place] [id number] 11/19/2020 00:00:00 11/27/2020 20:03:57 [id number] [facility] [place] [address] [place] [address] 02/25/2021 00:00:00 02/25/2021 10:31:23 [id number] [facility] [place] [address] [place] [id number] 12/21/2021 00:00:00 12/26/2021 00:56:28 [id number] SAMMI Salmon [facility] [place] [address] [place] [address] 12/22/2022 12:17:38 12/22/2022 13:56:49 Hypothyroidism 68728347 E03.9 on levothyrox ine 75mcg daily. due for TFTs Gastroesop hageal reflux disease 306004599 K21.9 stable on famotidine OTC daily Generalize d anxiety disorder 60722631 F41.1 stable on citalopram 20mg daily and buspar 15mg bid Osteoarthritis 961922993 M19.90 stable at this time. Long-term drug therapy 133124814 Z79.899 routine labs due Hyperlipidemia 09598566 E78.5 dietary managed. fasting lipids are due Blood gluc ose outside reference range 712384654 R73.09 following a1c. mild increase risk for diabetes. due for a1c Screening mammography 24 031061 Z12.31 mammogram due Postmenopausal state 764 45237 Z78.0 dexa scan due [id number] SAMMI Salmon [facility] [place] [address] [place] [address] 01/04/2023 09:04:37 01/04/2023 09:29:48 Injury of right foot 720246294 S99.921A send for xray right foot. [id number] David Lewis DPM [facility] [place] [address] [place] [address] 01/09/2023 10:36:14 01/23/2023 11:49:18 Closed fracture of fifth metatarsal bone 26996613 S92.351A x-rays from 01/04/2023 reviewed secondary to weight bear new x-rays were performedr ecommend no weight right footdispen se postop shoerepeat x-rays no change in alignments urgical and nonsurgica l options reviewed with the patient patient elects to continue with nonsurgica l options. patient would benefit from surgical operative correction to improved alignment of bone but overall alignment is stablefoll ow-up 4 weeks repeat x-rays [id number] David Lewis DPM [facility] [place] [address] [place] [address] 02/06/2023 09:13:16 02/06/2023 10:26:38 Closed fracture of fifth metatarsal bone 67862000 S92.351A x-rays from 02/06/2023 reviewed no changes in alignment and no significan t signs of healingrec ommend no weight right foot-- patient weight-owen ring in postop shoerecomm end surgery- patient states she has an upcoming vacation does not want to have surgery until after the vacationre peat x-rays no change in alignments urgical and nonsurgica l options reviewed with the patient patient elects to continue with nonsurgica l options. patient would benefit from surgical operative correction to improved alignment of bone but overall alignment is stablefoll ow-up 3 weeks repeat x-rays [id number] David Lewis DPM [facility] [place] [address] [place] [address] 02/27/2023 08:59:05 02/27/2023 10:19:44 Closed fracture of fifth metatarsal bone 09380722 S92.351A may weightbear in a postop shoe- patient understand s weight-owen ring could cause worsening of the fracture despite attempts at healing secondary to no callus formationr ecommend surgery- states she does not want to have surgeryfol low-up for x-rays in 4 weeks [id number] David Lewis DPM [facility] [place] [address] [place] [address] 03/27/2023 08:55:40 03/27/2023 14:24:45 Closed fracture of fifth metatarsal bone 77087146 S92.351G repeat x-rays show mild callus formationc ontinue no strenuous activityma y transition to normal shoe gearfollow -up in 4-5 weeks for repeat x-rays [id number] David Lewis DPM [facility] [place] [address] [place] [address] 05/08/2023 08:52:46 05/08/2023 10:41:54 Closed fracture of fifth metatarsal bone 50316828 S92.351G repeat x-rays show mild callus formationp atient denies surgerypat ient understand s this could lead to weakening of the bone and may cause refracture which could worsen bone formationc ontinue no strenuous activityma y continue normal shoe gearfollow -up as needed [id number] SAMMI Baez [facility] [place] [address] [place] [address] 06/23/2023 08:56:15 06/23/2023 09:47:10 History of total replacement of right hip joint 5681840816 03747 Z96.641 Health Concerns Section Related Observation LastModified by Organization Detai ls LastModified Time None Recorded Concern Status LastModified by Organization Details LastModified Time None Recorded Advance Directives Directive None Recorded Payers Encounter Date Sequence Insurance Name Policy Number Policy Clark Covered Member ID Clark Member ID Guarantor Name 02/06/2023 1 [facility] (MEDICARE REPLACEMENT/A DVANTAGE - HMO) [id number] Jessica [id number] Jessica 02/27/2023 1 [facility] (MEDICARE REPLACEMENT/A DVANTAGE - HMO) [id number] Jessica [id number] Jessica 03/27/2023 1 [facility] (MEDICARE REPLACEMENT/A DVANTAGE - HMO) [id number] Jessica [id number] Jessica 05/08/2023 1 [facility] (MEDICARE REPLACEMENT/A DVANTAGE - HMO) [id number] Jessica August [id number] Jessica 06/23/2023 1 [facility] (MEDICARE REPLACEMENT/A DVANTAGE - HMO) [id number] Jessica August [id number] Jessica August Notes Date Note Type Note Provider Name and Address Organization Details Recorded Time 02/06/2023 text/html . Patient is a 67-year-old female who returns the office for a 5th metatarsal fracture. Patient has been weight-bearing in a postop shoe. Patient states that her pain level has improved and denies any new complaints. Patient states that she has an upcoming trip to [place] and was asking to remove the boot while on the beach. I explained that she needs to be minimal weight-bearing with use of the postoperative shoe at all times. Patient states her pain is mainly when she is weight-bearing. Patient denies any other pedal complaints. David Lewis DPM [address], [facility] [address], [place], [address], [facility] [employer] [facility] 02/06/2023 10:25:48 02/27/2023 text/html Patient is a 68-year-old female who returns the office for follow-up on closed fracture of the right 5th metatarsal. Patient has been weight-bearing to the heel in a postop shoe and returns for follow-up. Patient states she does not have any significant pain. Patient states at times she has some mild discomfort but overall she thinks she is doing better. Patient had x-rays which were shown without significant callus formation. I did express that the bone does not appear to be healing she is taking [id number] vitamin D3 and calcium supplements. I explained to the patient that she may require surgical intervention because of the nonhealing fracture. Patient states at this time she does not want to have surgery I expressed that her best chance of healing the fracture is to a little bit of pressure medially healing to the foot but this may also cause widening of the fracture which the patient states she wants to pursue walking with a postop shoe as she does not want to have surgery. Patient denies any other complaints. David Lewis DPM [address], [facility] [address], [place], [address], [employer] [facility] [employer] [facility] 02/27/2023 09:54:46 03/27/2023 text/html . Patient is a 68-year-old female who returns the office for follow-up on closed fracture of the 5th metatarsal right foot. Patient has been in and out of her postop shoe. Patient states she also has been walking barefoot around her house. Patient states that she only has minimal discomfort. Patient states she does not take any pain medication for this pain. Patient had repeat x-rays which shows mild consolidation at the fracture area. Patient states that she still does not want to undergo surgery and would like to continue with conservative therapy. Patient denies any other complaints. David Lewis DPM [address], [facility] [address], [place], [address], [employer] 03/27/2023 09:30:51 05/08/2023 text/html . Patient is a 68-year-old female who returns the office for follow-up on closed fracture of the 5th metatarsal right foot. Patient had repeat x-rays again today which shows partial healing of the fracture with mild displacement. Patient states she has returned to normal shoe gear is not having any difficulty with walking. Patient denies any swelling or bruising to the area. I did discuss due to the insufficient healing it may be beneficial if she undergo operative correction with screw and plate fixation which she continues to not want to have this performed and denies. Patient states that she would like to continue with conservative therapy. I did discuss there is a possibility that this could worsen secondary to the partial healing and this could cause re-fracture her of the bone. Patient denies any other complaints. David Lewis DPM [address], [facility] [address], [place], [address], [employer] 05/08/2023 10:30:29 OBGyn Episode No OBEpisode recorded.
--- OUTSIDE RECORDS SUMMARY | 2024-08-27 00:49 | XMS_ITS | CONTINUITY OF CARE DOCUMENT ---
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
--- OUTSIDE RECORDS SUMMARY | 2024-08-27 00:49 | XMS_ITS | Data Portability ---
Author Organization [facility] Address [address] [place] [address] Care Team Providers [employer] Impregnating Range Tender Name Role Phone IVET VALLES Primary Care Provider Unavailab le Assessment No assessment recorded. Plan of Treatment Reminders Order Date Submit Date Provider Last Modified By Organization Details Last Modified Time Details Appointments ANY 15 2024 08:15A M SAMMI Salmon Not available Not available Not available Lab HbA1c (hemoglob in A1c), blood 2024 025 [email or web address] [facility], [address], [place], [address], 07/02/2024 09:50:52 CBC w/ auto diff 2024 025 [email or web address] [facility], [address], [place], [address], 07/02/2024 09:50:52 hepatic function panel, serum 2024 025 [email or web address] [facility], [address], [place], [address], 07/02/2024 09:50:52 BMP, serum or plasma 2024 025 [email or web address] [facility], [address], [place], [address], 07/02/2024 09:50:52 lipid panel, serum 2024 025 [email or web address] [facility], [address], [place], [address], 07/02/2024 09:50:52 TSH + free T4, serum 2024 025 [email or web address] [facility], [address], [place], [address], 07/02/2024 09:50:52 CBC w/ auto diff 2023 024 [email or web address] [facility], [address], [place], [address], 01/29/2024 14:19:04 hepatic function panel, serum 2023 024 [email or web address] [facility], [address], [place], [address], 01/29/2024 14:19:05 BMP, serum or plasma 2023 024 [email or web address] [facility], [address], [place], [address], 01/29/2024 14:19:05 lipid panel, serum 2023 024 [email or web address] [facility], [address], [place], [address], 01/29/2024 14:19:04 TSH + free T4, serum 2023 024 [email or web address] [facility], [address], [place], [address], 01/29/2024 14:19:04 Referral dermatolo gist referral 2023 024 [facility], [address] [facility] [place], [address], 11/21/2023 16:27:42 Procedures None recorded. Surgeries None recorded. Imaging home sleep study 2023 024 [facility] ([facility]), [address] [place], [address], 11/10/2023 16:29:50 Medication Orders None recorded. Patient TargetsNo targets recorded. 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 Referral for P igmented skin lesion Referring Physician: Ivet Valles, Internal Medicine, Encounter Date: 08/25/2023 Results Created Date Observation Date Name Description Value Unit Range Abnormal Flag Note LastModifiedBy Organization Detail LastModifiedTime 08/02/19 24 08/02/2023 Estro ne (E1) [Mass /volu me] in Serum or Plasm a estrone estro ne Not Available Not Available 07/02/2024 09:18:28 08/02/19 24 08/02/2023 Testo stero ne Free [Mass /volu me] in Serum or Plasm a testosterone free testo stero ne free Not Available Not Available 07/02/2024 09:18:28 08/02/19 24 08/02/2023 25-Hy droxy vitam in D3+25 -Hydr oxyvi tamin D2 [Mass /volu me] in Serum or Plasm a vitamin D, 25-hydroxy, total vitam in D, 25-hy droxy , total Not Available Not Available 07/02/2024 09:18:28 08/02/19 24 08/02/2023 Folli tropi n [Unit s/vol ume] in Serum or Plasm a FSH FSH Not Available Not Availa ble 07/02/2024 09:18:28 11/10/19 24 10/12/2023 home sleep study No observ ation record ed. [email or web address] [place] [facility] ([facility]) [address] [place], [address], 12/31/2023 18:50:02 12/15/19 24 12/07/2023 US, echoc ardio gram, trans thora cic, compl ete No observ ation record ed. [address] (Cardiology [facility] Emg) [address], [place], [address], 12/31/2023 18:49:57 12/28/19 24 12/06/2023 polys omnog corin , titra tion study (PROC ) No observ ation record ed. [place] [address] [facility] ([facility]) [address], [place], [address], 12/31/2023 18:50:24 05/16/19 25 04/05/2024 XR, chest , 2 view No observ ation record ed. [facility] [address] [facility] [address], [place], [address], 05/27/2024 17:32:47 08/09/19 25 08/08/2024 MAMMO , scree lili, digit al, bilat eral No observ ation record ed. [address] [facility] [address], [place], [address], 08/08/2024 21:18:47 08/23/19 25 08/22/2024 XR, chest , 2 view No observ ation record ed. [facility] [address] [facility] [address], [place], [address], 08/23/2024 13:47:59 Result Notes None recorded. Problems Name Problem SNOMED Code Status Onset Date Resolution Date Notes Provider Name and Address Organization Details Recorded Time Hypothyroidism 86463668 Active 2023 JES Eddy - [facility] 11:10:41 Hyperlipidemia 24700897 Active 2023 JES Eddy - [facility] 4 11:10:47 Generalized anxiety disorder 30017894 Active 2023 Nikolehayley [place] null, [place] - [facility] 4 11:10:54 Gastroesophage al reflux disease 896901123 Active 2023 Nikolejohn paul [place] - [facility] 4 11:10:59 Osteoarthritis 852978850 Active 2023 Nikole [place] [facility] 4 11:11:11 Obstructive sleep apnea syndrome 52851843 Active 2023 SAMMI Salmon Attn: Accountin g,[address] [facility], [place], [address], [place] - [facility] 4 18:46:06 Body mass index 25-29 - overweight 297954299 Active 2023 SAMMI Salmon Attn: Accountin g,[address] [facility], [place], [address], [place] [facility] 4 18:48:14 Overweight 242198563 Active 2024 SAMMI Salmon Attn: Accountin g,[address] [facility], [place], [address], [place] - [facility] 5 14:06:35 Problem Notes None recorded. Procedures Surgical History Date Name Laterality Status Provider Name and Address Organization Details Recorded Time 2 colonoscopy completed Nikole [place] - [facility] 08/16/2023 11:21:53 8 Other completed Nikolejohn paul [place] - [facility] 08/16/2023 11:17:54 8 hernia repair completed Nikolejohn paul [place] - [facility] 08/16/2023 11:17:06 Imaging Results Imaging Date Name Status LastModified by [facility] Details LastModified Time 10/12/2023 home sleep study completed [address] [facility] ([facility]) [facility] [place], [address], 12/31/2023 18:50:02 12/07/2023 US, echocardiogram , transthoracic, complete completed [address] (Cardiology [facility]) [address], [place], [address], 12/31/2023 18:49:57 12/06/2023 polysomnograph y, titration study (PROC) [place] [address] [facility] ([facility]) [address] [facility], [place], [address], 12/31/2023 18:50:24 04/05/2024 XR, chest, 2 view completed [facility] [address] [facility] [address], [place], [address], 05/27/2024 17:32:47 08/08/2024 MAMMO, screening, digital, bilateral completed [address], [place], [address], 08/08/2024 21:18:47 08/22/2024 XR, chest, 2 view [facility] [address] [facility] [address], [place], [address], 08/23/2024 13:47:59 Procedure Notes None recorded. Medical Equipment None Reported. Allergies No known drug allergies Medications Name Sig Start Date Stop Date Status Note LastModified by Organization Details LastModified Time amoxicill in 500 mg capsule TAKE 4 CAPSULES BY MOUTH 1 HOUR PRIOR TO APPOINTM ENT 08/24 completed Not Available Not Available Not Available citalopra m 40 mg tablet TAKE 1 TABLET BY MOUTH EVERY DAY active Not Available Not Available No t Available prednison e 20 mg tablet Take 2 tablets every day by oral route for 5 days. 2024 active Not Available Not Available Not Avai lable acyclovir 400 mg tablet TAKE 1 TAB TWICE A DAY DAILY FOR SUPPRESI VE THERAPY active Not Available Not Available No t Available levothyro xine 75 mcg tablet TAKE 1 TABLET BY MOUTH EVERY DAY active Not Available Not Available No t Available alprazola m 0.25 mg tablet TAKE 1 TABLET 3 TIMES A DAY BY ORAL ROUTE NEEDED. active prn Not Available Not Available No t Available citalopra m 20 mg tablet TAKE 1 TABLET BY MOUTH TWICE A DAY 03/25 completed Not Available Not Available Not Available estradiol 0.01% (0.1 mg/gram) vaginal cream PLEASE SEE ATTACHED FOR DETAILED DIRECTIO NS active Not Available Not Available No t Available amoxicill in 875 mg-potass ium clavulana te 125 mg tablet Take 1 tablet every 12 hours by oral route. 2024 active Not Available Not Available Not Avai lable buspirone 15 mg tablet TAKE 1 TABLET BY MOUTH TWICE A DAY active Not Available Not Available No t Available Lunesta 3 mg tablet take 1 tab po 30 min before sleep study 12/24 completed Not Available Not Available Not Available progester one active compound ed Not Available Not Available Not Available Vitals Date Recorded Body height Respiratory rate Body mass index (BMI) Body weight Oxygen saturation Oxygen saturation in Arterial blood by Pulse oximetry Heart rate Systolic blood pressure Diastolic blood pressure Provider Name and Address Organization Details Last Updated DateTime 162.56 cm 20 /min 26.9 kg/m2 91814 g 97 % 97 % 82 /min 130 mm[Hg] 82 mm[Hg] Ayden Ferguson MA [facility] 4 09:08:13 Date Recorded Systolic blood pressure Diastolic blood pressure Provider Name and Address Organization Details Last Updated DateTime 08/25/2023 134 mm[Hg] 82 mm[Hg] SAMMI Salmon Attn: Accounting,[address] [place], [address], [facility] 08/25/2023 09:28:57 Date Recorded Body height Body mass index (BMI) Body weight Respiratory rate Oxygen saturation Oxygen saturation in Arterial blood by Pulse oximetry Heart rate Systolic blood pressure Diastolic blood pressure Provider Name and Address Organization Details Last Updated DateTime 4 162.56 cm 26.9 kg/m2 42425 g 18 /min 98 % 98 % 70 /min 140 mm[Hg] 80 mm[Hg] Mac Light MA [facility] 4 10:33:36 Date Recorded Systolic blood pressure Diastolic blood pressure Provider Name and Address Organization Details Last Updated DateTime 12/25/2023 144 mm[Hg] 80 mm[Hg] SAMMI Salmon Attn: Accounting,[address] [place], [address], [facility] 12/25/2023 10:56:43 Date Recorded Body height Respiratory rate Oxygen saturation Oxygen saturation in Arterial blood by Pulse oximetry Heart rate Body mass index (BMI) Body weight Systolic blood pressure Diastolic blood pressure Provider Name and Address Organization Details Last Updated DateTime 5 162.56 cm 18 /min 100 % 100 % 76 /min 27.3 kg/m2 36117.1 9 g 168 mm[Hg] 88 mm[Hg] Ayden Ferguson MA [facility] 5 14:04:45 Date Recorded Systolic blood pressure Diastolic blood pressure Systolic blood pressure Diastolic blood pressure Provider Name and Address Organization Details Last Updated DateTime 05/02/2024 140 mm[Hg] 80 mm[Hg] 160 mm[Hg] 90 mm[Hg] SAMMI Salmon Attn: Accounting ,[address] [place], [address] , [facility] 5 14:31:55 Date Recorded Body height Body mass index (BMI) Body weight Oxygen saturation Oxygen saturation in Arterial blood by Pulse oximetry Heart rate Systolic blood pressure Diastolic blood pressure Provider Name and Address Organization Details Last Updated DateTime 5 162.56 cm 28.2 kg/m2 94617.1 5 g 95 % 95 % 76 /min 130 mm[Hg] 86 mm[Hg] Ayden Ferguson MA [facility] 5 09:30:56 Date Recorded Respiratory rate Systolic blood pressure Diastolic blood pressure Systolic blood pressure Diastolic blood pressure Provider Name and Address Organization Details Last Updated DateTime 5 16 /min 130 mm[Hg] 82 mm[Hg] 120 mm[Hg] 80 mm[Hg] SAMMI Salmon Attn: Joann g,[address] [place], [address], [facility] 09:47:52 Social History Question Answer Notes LastModified by Organizat ion Details LastModified Time Tobacco Smoking Status Former Smoker Nikole palmer, [facility] 08/16/2023 11:16:13 Do You Have An Advance Directive? Yes Information not available 08/25/2023 What Is Your Level Of Alcohol Consumption? Occasional Information not available 08/16/2023 Are You Blind Or Do You Have Difficulty Seeing? Yes Wears Glasses [email or web address] Information not available 08/16/2023 What Is Your Level Of Caffeine Consumption? Moderate [email or web address] Information not available 08/16/2023 In The 14 Days Before Symptom Onset, Have You Had Close Contact With A Laboratory-confir med COVID-19 While That Case Was Ill? No [email or web address] Information not available 08/16/2023 In The 14 Days Before Symptom Onset, Have You Had Close Contact With A Person Who Is Under Investigation For COVID-19 While That Person Was Ill? No [email or web address] Information not available 08/16/2023 Have You Been To An Area Known To Be High Risk For COVID-19? No [email or web address] Information not available 08/16/2023 Are You Currently Employed? Yes [email or web address] Information not available 08/16/2023 Are You Deaf Or Do You Have Serious Difficulty Hearing? No Information not available 08/25/2023 What Type Of Diet Are You Following? 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 07/02/2024 Information not available 07/02/2024 What Is Your Current Pack Years? 10-19packyear s Information not available 08/25/2023 What Is Your Relationship Status? [email or web address] Information not available 08/16/2023 Do You Use Your Seat Belt Or Car Seat Routinely? Yes [email or web address] Information not available 08/16/2023 Do You Have Smoke And Carbon Monoxide Detectors In Your Home? Yes [email or web address] Information not available 08/16/2023 How Much Tobacco Do You Smoke? No Information not available 05/02/2024 Do You Use Any Illicit Or Recreational Drugs? No [email or web address] Information not available 08/16/2023 Do You Use Sunscreen Routinely? Yes [email or web address] Information not available 08/16/2023 Has Tobacco Cessation Counseling Been Provided? Yes Information not available 08/25/2023 On What Date Was Tobacco Cessation Counseling Provided? 07/02/2024 Information not available 07/02/2024 Do You Or Have You Ever Used Any Other Forms Of Tobacco Or Nicotine? No [email or web address] Information not available 08/16/2023 Sex: Female Functional Status Question Answer Note LastModified by Organizat ion Details LastModified Time Are you able to care for yourself? Yes [email or web address] Information not available 08/16/2023 What is your exercise level? Occasional [email or web address] Information not available 08/16/2023 Mental Status None recorded. Family History Relationship Description Onset Age of this Age Resolved Age Notes LastModified by Organization Details LastModified Time Mother Congestive heart failure [email or web address] Not available 08/15 11:11:30 Mother Chronic obstructive pulmonary disease [email or web address] Not available 08/15 11:11:39 Father Neoplasm of brain [email or web address] Not available 08/15 11:11:52 Brother Diabetes mellitus [email or web address] Not available 08/15 11:12:00 Sister Hypertensive disorder [email or web address] Not available 08/15 11:12:27 Medical History Condition Response Anxiety Disorder Y Acid Reflux (GERD) Y Thyroid Problems Y Depression Y Gynecological HistoryNo gynecological history recorded. Obstetrics History GPAL:G 2 P 2 0 0 2 Type Value Full Term 2 Induced 0 Spontaneous 0 Premature 0 Living 2 Total 2 Immunizations Vaccine Type Date Status Note Provider Nam e and Address Organization Details Recorded Time zoster recombinant 0 completed JEROME [place], [place] - [facility] 05/02/2024 14:03:14 zoster recombinant 0 completed [place] [facility] 05/02/2024 14:03:15 Influenza, high-dose, quadrivalent, PF 2 completed [place] [facility] 05/02/2024 14:03:15 Influenza, adjuvanted, quadrivalent, PF 3 completed [place] [facility] 05/02/2024 14:03:15 COVID-19, mRNA, LNP-S, PF, 30 mcg/0.3 mL dose 1 completed [place]OME [place] [facility] 05/02/2024 14:03:15 COVID-19, mRNA, LNP-S, PF, 30 mcg/0.3 mL dose 1 completed [place]EROME [place] [facility] 05/02/2024 14:03:15 COVID-19, mRNA, LNP-S, PF, 30 mcg/0.3 mL dose 1 completed [place] [facility] 05/02/2024 14:03:15 Pneumococcal conjugate PCV20, polysaccharide [id number] conjugate, adjuvant, PF 2 completed [place]EROME [place] [facility] 05/02/2024 14:03:15 COVID-19, mRNA, LNP-S, bivalent, PF, 30 mcg/0.3 mL dose 3 completed [place]OME [place] [facility] 05/02/2024 14:03:15 COVID-19, mRNA, LNP-S, bivalent, PF, 30 mcg/0.3 mL dose 2 completed [place]OME [place] [facility] 05/02/2024 14:03:15 RSV, recombinant, protein subunit RSVpreF, adjuvant reconstituted, 0.5 mL, PF 3 completed [place]OME [place] [facility] 05/02/2024 14:03:15 COVID-19, mRNA, LNP-S, PF, valerie-sucrose, 30 mcg/0.3 mL 4 completed [place]OME [place] [facility] 05/02/2024 14:03:15 COVID-19, mRNA, LNP-S, PF, valerie-sucrose, 30 mcg/0.3 mL 3 completed JEROME [place] [facility] 05/02/2024 14:03:15 Past Encounters Encounter ID Performer Location Encounter Start Date Encounter Closed Date Diagnosis/Indication Diagnosis SNOMED-CT Code Diagnosis ICD10 Code Diagnosis Note [id number] SAMMI Salmon ON LICENSE OF [facility] [employer] - [place] [address] [place] [address] 08/25/2023 08:57:19 08/25/2023 11:04:06 Sleep apnea 17298666 G47.30 refer for home sleep study Pigmented skin lesion 20 1586869 L81.9 refer for general skin check ; she has several macular lesion, fair skin, that need evaluated in detail. Hypothyroidism 72592022 E03.9 on thyroid supplement levothyrox ine 75mcg daily .due for labs Cholesterol screening 27 7852350 Z13.220 fasting lipids due. Long-term drug therapy 112806713 Z79.899 cbc, LFT, and bmp due in october. [id number] SAMMI Salmon ON LICENSE OF [facility] [employer] - [place] [address] [place] [address] 12/25/2023 10:18:09 12/25/2023 11:48:21 Hypothyroidism 77970230 E03.9 on thyroid supplement levothyrox ine 75mcg daily . She is stable on current dosing. The TSH is suppressed but free T4 is still in range. Hyperlipidemia 23507795 E78.5 Patient is managing hyperlipid emia with diet and exercise modificati ons and successful on lab results Generalize d anxiety disorder 62832968 F41.1 Patient is stable on BuSpar 15 mg twice a day and citalopram 20 mg twice a day Obstructiv e sleep apnea syndrome 89318427 G47.33 Patient had CPAP titration study and results are currently pending report. It was done over a few weeks ago so we will call for results and then appropriat e CPAP and settings will be ordered once report is reviewed in parameters were given for Itandi. Long-term drug therapy 893813738 Z79.899 Labs are all up-to-date and reviewed with patient Body mass index 25-29 - overweight 998641593 Z68.26 BMI is 26.9 [id number] SAMMI Salmon ON LICENSE OF [facility] [employer] - [place] [address] [place] [address] 05/02/2024 13:57:55 05/02/2024 15:11:37 Body mass index 25-29 - overweight 010488785 Z68.27 bmi 27.3 Obstructiv e sleep apnea syndrome 80383745 G47.33 Started using cpap early March: usage around 8 hours per night. Seal and Events are very good. Scores are very good. Clinically , patient is feeling rested completely and waking earlier and feeling more refreshed. Using cpap nightly unless you are with respirator y illness. Almost 2 months in on treatment. Very pleased with efficacy. Overweight 885751585 E66 .3 Hypothyroidism 64621328 E03.9 on thyroid supplement levothyrox ine 75mcg daily . Generalize d anxiety disorder 05571596 F41.1 Patient is stable on BuSpar 15 mg twice a day and citalopram 40mg daily. Hyperlipidemia 69433070 E78.5 Patient is managing hyperlipid emia with diet and exercise modificati ons and successful on lab results Long-term drug therapy 176717015 Z79.899 Labs are all up-to-date and reviewed with patient [id number] SAMMI Salmon ON LICENSE OF [facility] [place] [address] [place] [address] 07/02/2024 09:17:13 07/02/2024 10:08:30 Body mass index 25-29 - overweight 368512213 Z68.27 bmi 27.3 Overweight 120155444 E66 .3 Blood pressure taking 46 847991 Z01.30 Patient's blood pressure is very stable today 120/80. Improved as stress has improved in her life as well. Hypothyroidism 29953193 E03.9 on thyroid supplement levothyrox ine 75mcg daily .due for labs Cholesterol screening 27 9436288 Z13.220 fasting lipids due. Long-term drug therapy 362019637 Z79.899 cbc, LFT, and bmp due on next labs Blood gluc ose outside reference range 196436285 R73.09 Fasting glucose 101 on most recent labs. We will check an A1c for diabetes risk assessment Health Concerns Section Related Observation LastModified by Organization Detai ls LastModified Time None Recorded Concern Status LastModified by Organization Details LastModified Time None Recorded Advance Directives Directive Y: Payers Encounter Date Sequence Insurance Name Policy Number Policy Clark Covered Member ID Clark Member ID Guarantor Name 08/25/2023 1 [facility] (MEDICARE REPLACEMENT/A DVANTAGE - HMO) [id number] Jessica 12/25/2023 1 [facility] (MEDICARE REPLACEMENT/A DVANTAGE - HMO) [id number] August [id number] Jessica 05/02/2024 1 [facility] (MEDICARE REPLACEMENT/A DVANTAGE - HMO) [id number] Jessica May [id number] Jessica 07/02/2024 1 [facility] (MEDICARE REPLACEMENT/A DVANTAGE - HMO) [id number] August [id number] Jessica May Notes Date Note Type Note Provider Name and Address Organization Details Recorded Time 08/25/19 24 text/htm l Obstructive Sleep Apnea F/UReported bypatient.Quality:worsening;l oud snoring;witnessed apnea;snoring with apnea Onset/Timing:recurring Location:dryness of mouth Prior opinionPCPThyroidReported bypatient.Quality:improving Severity:mild Duration:constant Onset/Timing:better Context:family history of thyroid disease yes;history of hypothyroidism Modifying Factors:medication Exercisegets exercise Associated Symptoms:no cold intolerance; no heat intolerance; no weight loss; no weight gain; no hoarseness; no difficulty swallowing; no neck masses; no deepening of the voice pt. states that she is having some skin issues states that they have irregular appearance to them; she would like to have those looked at as well as discuss the sleep issues, states that she snores a lot and that she has been told that she has irregular breathing while she sleeps SAMMI Salmon Attn: Accounting,[address] [place] [address], [address], [facility] 08/30/2023 23:54:52 12/25/19 24 text/htm l Anxiety/DepressionReported bypatient.Notes:Patient is stable on citalopram 20 mg twice a day and BuSpar 15 mg twice a dayObstructive Sleep Apnea F/UReported bypatient.Quality:worsening;l oud snoring;witnessed apnea;snoring with apnea Onset/Timing:recurring Location:dryness of mouth Prior opinionPCPNotes:Patient had a sleep study but it is currently still pending results at the time of appointment. She had to go in for split night sleep study and also had to have an echocardiogram because central sleep apnea findings. Her echo is stable.ThyroidReported bypatient.Quality:improving Severity:mild Duration:constant Onset/Timing:better Context:family history of thyroid disease yes;history of hypothyroidism Modifying Factors:medication Exercisegets exercise Associated Symptoms:no cold intolerance; no heat intolerance; no weight loss; no weight gain; no hoarseness; no difficulty swallowing; no neck masses; no deepening of the voiceNotes:Patient is stable on levothyroxine 75 mcg daily SAMMI Salmon Attn: Accounting,[address] [facility], [place], [address], [facility] - [facility] 12/31/2023 18:50:35 05/02/19 25 text/htm l Anxiety/DepressionReported bypatient.Notes:Patient is stable on citalopram 20 mg twice a day and BuSpar 15 mg twice a dayObstructive Sleep Apnea F/UReported bypatient.Quality:worsening;l oud snoring;witnessed apnea;snoring with apnea Onset/Timing:chronic; recurring Severity:moderate; does not limit daily activities; no frequent sore throats resulting in excess missed days from school / work per year; no difficulty getting going in the morning; no awakening in the middle of the night with sore throat Location:dryness of mouth Alleviating factors:relief with CPAP Prior Tests:home sleep study Prior TreatmentCPAP Prior opinionPCPNotes:Excellent adherence. cpap dewey reviewed. therapeutic response is great to cpap. She had to go in for split night sleep study and also had to have an echocardiogram because central sleep apnea findings. Her echo is stable.ThyroidReported bypatient.Quality:improving Severity:mild Duration:constant Onset/Timing:better Context:family history of thyroid disease yes;history of hypothyroidism Modifying Factors:medication Exercisegets exercise Associated Symptoms:no cold intolerance; no heat intolerance; no weight loss; no weight gain; no hoarseness; no difficulty swallowing; no neck masses; no deepening of the voiceNotes:Patient is stable on levothyroxine 75 mcg daily SAMMI Salmon Attn: Accounting,[address] [facility], [place], [address], [facility] - [facility] 05/25/2024 23:18:37 07/03/19 25 text/htm l Anxiety/DepressionReported bypatient.Notes:Patient is stable on citalopram 40 mg daily and BuSpar 15 mg twice a dayObstructive Sleep Apnea F/UReported bypatient.Quality:worsening;l oud snoring;witnessed apnea;snoring with apnea Onset/Timing:chronic; recurring Severity:moderate; does not limit daily activities; no frequent sore throats resulting in excess missed days from school / work per year; no difficulty getting going in the morning; no awakening in the middle of the night with sore throat Location:dryness of mouth Alleviating factors:relief with CPAP Prior Tests:home sleep study Prior TreatmentCPAP Prior opinionPCPNotes:Excellent adherence. cpap dewey reviewed. therapeutic response is great to cpap. She had to go in for split night sleep study and also had to have an echocardiogram because central sleep apnea findings. Her echo is stable.ThyroidReported bypatient.Quality:improving Severity:mild Duration:constant Onset/Timing:better Context:family history of thyroid disease yes;history of hypothyroidism Modifying Factors:medication Exercisegets exercise Associated Symptoms:no cold intolerance; no heat intolerance; no weight loss; no weight gain; no hoarseness; no difficulty swallowing; no neck masses; no deepening of the voiceNotes:Patient is stable on levothyroxine 75 mcg daily Patient has been checking her home blood pressure SAMMI Salmon Attn: Accounting,[address] [place], [address], [place] - [facility] 07/28/2024 00:04:41 OBGyn Episode No OBEpisode recorded.
--- OUTSIDE RECORDS SUMMARY | 2024-08-27 00:49 | XMS_ITS | Clinical Summary ---
Author Organization [facility] Address [address] [place] [id number] Care Team Providers Care Cloth Hand Name Role Phone Unavailable Primary Care Provider Unavailabl e Social History Tobacco Use Types Packs/Day Years Used Date Smoking Tobacco: Never Assessed Comments Unknown Sex and Gender Information Value Date Recorded Sex Assigned at Not on file Legal Sex Female 7:19 PM CDT Gender Identity Not on file Sexual Orientation Not on file Plan of Treatment Health Maintenance Due Date Last Done Comments Colorectal Cancer Screening Colonoscopy (10 Years) 1957 Hepatitis C 1975 DTaP, Tdap and Td Vaccines ( 1 - Tdap) 02/14/1976 Mammogram Screening 1997 Pneumococcal Vaccine: 50+ Ye ars (1 of 1 - PCV) 2007 Zoster Vaccines (1 of 2) 2007 Dexa Scan (General) 2022 COVID-19 Vaccine ( - 2023-2 5 season) 2023 RSV Immunization or 60+ Years (1 - 1-dose 75+ series) 02/14/2032 Meningococcal B Vaccine Aged Out No l onger eligible based on patient's age to complete this topic Meningococcal Vaccine Aged Out No james ora eligible based on patient's age to complete this topic RSV Immunizations Under 20 Months Aged Out No longer eligible based on patient's age to complete this topic
--- OUTSIDE RECORDS SUMMARY | 2024-08-27 00:49 | XMS_ITS | Data Portability ---
Author Organization [facility] Address [address] [place] [address] Care Team Providers Care Transitional Living Specialist Name Role Phone AYALA VALLES Primary Care Provider Assessment Encounter Date Assessment Date Assessment LastModified by Organization Details LastModified Time 04/14/2021 04/14/2021 Annual gynecological exam performed. Patient will come back in a year unless there are new symptoms. Suggest Calcium with Vitamin D if not eating in diet. Patient advised to get annual flu shot. Recommend yearly physicals and preform monthly breast exams. Genetic testing is available for patients with family history of cancer. Engage in safe sexual practices, use condoms. Encouraged to have daily exercise. Avoid tobacco and illicit drugs, moderation of alcohol. If BMI greater than 25 dietary consult advised. If you have any questions please call or email. f/u 3 weeks possible biopsy [email or web address] Not available 04/14/2021 12:41:33 06/17/2022 06/17/2022 Annual gynecological exam performed. Patient will come back in a year unless there are new symptoms. Suggest Calcium with Vitamin D if not eating in diet. Patient advised to get annual flu shot. Recommend yearly physicals and preform monthly breast exams. Genetic testing is available for patients with family history of cancer. Engage in safe sexual practices, use condoms. Encouraged to have daily exercise. Avoid tobacco and illicit drugs, moderation of alcohol. If BMI greater than 25 dietary consult advised. If you have any questions please call or email. may have refill of clobetasol if needed Not available 06/17/2022 12:59:56 08/02/2023 08/02/2023 Annual gynecological exam performed. Patient will come back in a year unless there are new symptoms. Take Calcium with Vitamin D 1200mg daily if not receiving in daily diet. It is strongly advised to have an annual flu shot and up can obtain at most pharmacies. If you have not had a TDap shot in the last 10 years you should obtain one as well. Discussed with patient & provided with information regarding Gardisil vaccine to prevent the 4 strains for HPV that cause cervical cancer if under age 26. Encourage safe sexual practices, to use condoms and limit partners if not already in a monogamous relationship. Do monthly self breast exams. Have mammogram yearly or every other year depending on family history. BRCA testing is now available for patients with strong genetic history of female cancer. If interested contact the office. Engage in daily exercise of low impact aerobic exercise 45-60 minutes 4-5 times weekly. Avoid tobacco and illicit drugs as well as using moderation with alcohol intake less than 1-2 8 oz beverages daily. This lifestyle behavior pattern will lead to less health conditions and longer life span. If BMI greater than 25 weight watchers or dietary consult advised. Patient received above instructions, and questions have been answered. If you have any questions please call or respond to this email. Patient was made aware of the patient portal and may obtain a paper copy of today's plan if desired. discussed increased cardiovascular risks with estrogen, can consider prog/testosterone supplementation will await labs but also reviewed there is not a perfect level, treatment based also on sxs, will f/u pending results Not available 08/02/2023 11:35:17 Plan of Treatment Reminders Order Date Submit Date Provider Last Modified By Organization Details Last Modified Time Details Appointments [facility] 2024 10:00A Jazmin Sims CNM Not available Not available Not available Lab None recorded. Referral None recorded. Procedures None recorded. Surgeries None recorded. Imaging None recorded. Medication Orders Estrace 0.01% (0.1 mg/gram) vaginal cream 2023 024 [facility][id number], [address] [place], [address], 08/02/2023 11:32:17 nystatin- triamcino lone 100,000 unit/gram -0.1 % topical ointment 2020 021 [email or web address] [id number], [address] [place], [address], 08/02/2023 11:07:10 Patient TargetsNo targets recorded. Patient InstructionsNo instructions recorded. Reason for Referral None Reported. Results Created Date Observation Date Name Description Value Unit Range Abnormal Flag Note LastModifiedBy Organization Detail LastModifiedTime 04/14/20 21 04/14/2021 IMAGE GUIDE D PAP AND HPV REGAR DLESS image guided Pap, HPV regardless of Pap result SEE RESULT S BELOW CASE REPOR T: Cytol ogy Gynec ologi rogelio Repor t Case: [id number] Autho herman reyes Provi shadi: Keysha Mcneal NP Colle cted: 04/14 1216 Order ing Locat ion: [place] [facility] Recei ava: 04/14 2341 First Scree n: Emmie Fajardo Speci men: Scree lili Pap - Image d, Cervi x STATE MENT OF ADEQU ACY: Satis facto ry for evalu ation Trans forma tion zone compo nent canno t be defin itive ly ident ified due to the prese nce of atrop hy or other hormo nal chamorro es FINAL DIAGN OSIS: Negat patt for Intra epith elial Lesio n or Ming watson (NIL) . Atrop hic cell francesca swain. Elect deysi ramirez shiraz d by Emmie Fajardo on 04/22 at 8:27 PM ----- ----- ----- ----- ----- ----- ----- ----- ----- ----- ----- ----- ----- ----- ----- ----- ----- ---- HPV RESUL TS: HPV mRNA E6/E7 : No HPV mRNA Detec noris NOTE: This high risk HPV mRNA assay detec ts fourt een high- risk HPV types (16, 18, 31, 33, 35, 39, 45, 51, 52, 56, 58, 59, 66, 68) witho ut diffe renti ation . COMME NT: Note: This speci men was revie wed by a Cytot echno logis t and/o r Patho logis t (as indic ated in this repor t) after evalu ation using the Thinp rep Imagi ng Syste m. CLINI ROGELIO INFOR MATIO N: Menst rual Statu s: LMP (if appli cable ): Clini rogelio Histo ry/Pr eviou s Pap: Type of Neopl alireza (if appli cable ): Signi fican t Clini rogelio Findi ngs: Other Histo ry: Hormo neri (if appli cable ): PAP EDUCA ALFONSO L NOTE: The Pap Test is a scree lili test with an inher ent false negat patt rate. Liqui d-bas e sampl ing may decre ase, but will not elimi karen, false negat patt resul ts. A negat patt resul t does not precl ude the prese nce and/o r devel opmen t of disea se, since the prese nce of abnor mal cells in the sampl e depen ds on the locat ion of the lesio n and sampl ing techn ique. Mauro nued regul ar scree lili is the best metho d of cance r preve ntion . If repor noris cytol ogic findi ng do not corre late with physi rogelio and/o r histo rical findi ngs, furth er inves tigat ion is recom claudy d, as clini maura flaherty nted. Not Available [facility] (Lab) [address], [place], [address], 04/22/2021 21:31:18 05/12/19 22 05/12/2021 SURGI ROGELIO PATHO LOGY surgical pathology SEE RESULT S BELOW CASE REPOR T: Surgi rogelio Patho logy Repor t Case: [id number] Autho herman reyes Provi shadi: Keysha Mcneal NP Colle cted: 05/12 1729 Order ing Locat ion: [place] [facility] [place] Recei ava: 05/13 0108 Patho logis t: Lynsey Vaughn MD Speci men: Labia Bx FINAL DIAGN OSIS: Labia , biops y: -Skin with chamorro es consi stent with early liche n scler osis. -Dysp lasia is not ident ified . Elect deysi dennis by Lynsey Vaughn MD on 2021 at 12:07 PM ----- ----- ----- ----- ----- ----- ----- ----- ----- ----- ----- ----- ----- ----- ----- ----- ----- ---- CLINI ROGELIO INFOR MATIO N: NOT PROVI DEDS MICRO SCOPI C DESCR IPTIO N: A micro scopi c exami natio n was perfo rmed. GROSS DESCR IPTIO N: A. U. The speci men is recei ava in forma urban label ed with the patie nt's name, demog lisa cs, and labi a biops y . It consi sts of a patino soft tissu e fragm ent measu ring 0.2 cm in [facility] dimen lyndon. The speci men is submi tted entir josé miguel and intac t in casse tte A1. Gross ed by Camden Castro Not Available [facility] (Lab) [address], [place], [address], 05/13/2021 13:09:18 08/02/19 24 08/02/2023 FSH FSH 47.7 mIU/m L This assay was perfo rmed using [employer] ratio n reage nts and test kits. Value s obtai mona with other assay metho ds or kits canno t be used inter ashtyn loera . Femal es Folli cular : 3.5-1 2.5 mIU/m L Ovula tion: 4.7-2 1.5 mIU/m L Lutea l: 1.7-7 .7 mIU/m L Postm enopa use: 25.8- 134.8 mIU/m L Not Available [facility] (Lab) [address], [place], [address], 08/07/2023 06:59:44 08/02/19 24 08/02/2023 VITAM IN D, 25-OH (TOTA L D2/D3 ) vitamin D, 25-hydroxy, total 57.4 NG/mL 30.0-1 00.0 Sugge stive of Defic iency : <20 ng/mL Sugge stive of Insuf ficie ncy: 20-29 ng/mL Sugge stive of Suffi cienc y: 30-10 0 ng/mL Sugge stive of Toxic ity: >150 ng/mL Not Available [facility] (Lab) [address], [place], [address], 08/07/2023 06:59:45 08/02/19 24 08/02/2023 TESTO STERO NE, FREE testosterone free 1.9 pg/mL 0.2-5. 0 The arti ntrat ion of free testo stero ne is deriv ed from a amador b[place] model using total testo stero ne by LCMSM S, sex hormo ne diann ng globu urban and album in. This test was devel oped and its bjorn tical perfo rmanc e bayron cteri stics have been deter mined by [employer] t[employer] [place], [place]. It has not been clear ed or appro ava by the U.S. Food and Drug Admin istra tion. This assay has been valid ated pursu ant to the CLIA regul ation s and is used for clini rogelio purpo ses. Perfo rming Organ izati on Infor matio n: Site ID: [id number] Name: [facility] Addre ss: [id number] [employer] [place], [place] Direc tor: Lory Pabon MD PhD Not Available [facility] (Lab) [address], [place], [address], 08/07/2023 06:59:45 08/02/19 24 08/02/2023 ESTRO NE estrone 27 pg/mL Adult Femal e Refer ence Range s for Estro ne: Folli cular Phase : 10-13 8 pg/mL Lutea l Phase : 16-17 3 pg/mL Postm enopa usal Phase : < or = 65 pg/mL Pedia tric Femal e Refer ence Range s for Estro ne: Pre-p ubert al (1-9 years ): < or = 34 pg/mL 10-11 years : < or = 72 pg/mL 12-14 years : < or = 75 pg/mL 15-17 years : < or = 188 pg/mL This test was devel oped and its bjorn tical perfo rmanc e bayron cteri stics have been deter mined by [employer]stic [employer]. It has not been clear ed or appro ava by FDA. This assay has been valid ated pursu ant to the CLIA regul ation s and is used for clini rogelio purpo ses. Perfo rming Organ izati on Infor matio n: Site ID: EZ Name: [employer] ostic s/[facility] , Addre ss: [id number] [facility] re[address] [place] [address] Dire tor: Rekha gamino MD,Ph D,CHRISTIANNE Not Available [facility] (Lab) [address], [place], [address], 08/07/2023 06:59:45 08/09/19 25 08/08/2024 imagi ng/di agnos tic resul t No observ ation record ed. ROSHAN [facility] [address], [place], [address], 08/08/2024 21:37:59 Result Notes None recorded. Problems Name Problem SNOMED Code Status Onset Date Resolution Date Notes Provider Name and Address Organization Details Recorded Time SNOMED CT Concept Completed 201805/12/2021 Encntr for medication coordinator exam (general ) (routine ) w/o abn findings ;Recorde d Elsewher e: No Locat ion: [facility] S ource: EHR Ophthalmic Tech foster: N Practi ce ID: [id number] Chan lable Time: 09:15:00 AM Pauline Reyna estela, [facility] 2 18:01:04 Screenin g for malignan t neoplasm of rectum Completed 201805/12/2021 Encounte r for screenin g for malignan t neoplasm of rectum;R ecorded Elsewher e: No Locat ion: [facility] S ource: EHR Ophthalmic Tech foster: N Practi ce ID: [id number] Chan lable Time: 09:15:00 AM Pauline Reyna estela, [facility] 2 18:01:01 Adult health examinat ion Completed 201405/12/2021 ROUTINE MEDICAL EXAM;Rec orded Elsewher e: No Locat ion: [facility] S ource: EHR Ophthalmic Tech foster: N Practi ce ID: [id number] Chan lable Time: 03:00:00 PM Pauline Reyna estela, [facility] 2 18:00:23 Speciali zed medical examinat ion Completed 201305/12/2021 Gynecolo gical Examinat ion;Randy rded Elsewher e: No Locat ion: [facility] S ource: EHR Ophthalmic Tech foster: N Practi ce ID: [id number] Chan lable Time: 02:30:00 PM Pauline palmer, [facility] 2 18:01:[address] Concept Completed 201505/12/2021 Encntr for general adult medical exam w/o abnormal findings ;Recorde d Elsewher e: No Locat ion: [facility] S ource: EHR Ophthalmic Tech foster: N Practi ce ID: [id number] Chna lable Time: 03:30:00 PM Pauline palmer [facility] 2 18:01:03 Screenin g for malignan t neoplasm of cervix Completed 201005/12/2021 Pap Smear;Pr actice ID: [id number] Pauline palmer, [facility] 2 18:00:55 Screenin g for malignan t neoplasm of colon Completed 201005/12/2021 Special screenin g for malignan t neoplasm s, colon;Pr actice ID: [id number] Pauline palmer, [facility] 2 18:00:57 Removal of intraute rine device Completed 201405/12/2021 REMOVAL OF IUD;Prac nirmala ID: [id number] Pauline palmer, [facility] 2 18:00:52 Emotiona l state finding Completed 201905/12/2021 Anxiety depressi on;Recor ded Elsewher e: No Locat ion: [facility] S ource: EHR Ophthalmic Tech foster: N Practi ce ID: [id number] Chan lable Time: 05:00:00 PM Pauline palmer [facility] 2 18:00:44 Conducti on disorder of the heart [id number] Completed 201305/12/2021 Bradycar sol;Randy rded Elsewher e: No Locat ion: [facility] S ource: EHR Ophthalmic Tech foster: N Jenniferti ce ID: [id number] Chan lable Time: 05:38:20 PM Pauline palmer [facility] 2 18:00:31 History of abnormal cervical Papanico laou smear [id number] Completed 201905/12/2021 Pauline palmer [facility] 2 18:00:42 Migraine 08598051 Completed 201905/12/2021 Pauline palmer [facility] 2 18:00:50 Anxiety 09042492 Completed 201905/12/2021 Pauline palmer [facility] 2 18:00:26 Depressi ve disorder 40093033 Completed 201905/12/2021 Pauline palmer, [facility] 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 4 11:07:30 Mixed anxiety and depressi ve disorder 575757933 Active 2023 Pauline palmer [facility] 4 11:07:44 Problem Notes None recorded. Procedures Surgical History Date Name Laterality Status Provider Name and Address Organization Details Recorded Time 08/02/19 24 Date of Last Pap Smear completed Pauline Reyna [facility] 08/03/2023 08:30:57 03/01/20 23 Date of Last Mammogram completed Pauline Reyna [facility] 10/10/2023 15:47:56 05/12/19 22 Vulvar Biopsy completed Keysha Sims CNM [address], [place], [address], [facility] 05/14/2021 10:00:31 05/12/19 22 biopsy of labia completed Pauline Reyna [facility] 05/12/2021 19:12:32 05/07/19 22 Date of Last Colonoscopy completed Pauline Reyna [facility] 06/16/2021 17:03:13 05/07/19 22 completed Pauline Reyna [facility] 06/16/2021 17:03:13 05/07/19 22 Colonoscopy completed Pauline Reyna [facility] 08/02/2023 11:02:21 07/05/19 18 total replacement of hip completed [facility] 02/25/2020 10:03:54 11/06/19 15 Most Recent Bone Density completed [facility] 04/26/2021 16:50:53 09/08/19 10 Colonoscopy completed [facility] 04/26/2021 17:13:07 05/01/18 88 repair of umbilical hernia completed [facility] 02/25/2020 10:03:34 Imaging Results Imaging Date Name Status LastModified by Organiz ation Details LastModified Time 08/08/2024 imaging/diag nostic result completed [facility] [address], [place], [address], 08/08/2024 21:37:59 Procedure Notes None recorded. Medical Equipment None Reported. Allergies No known drug allergies Medications Name Sig Start Date Stop Date Status Note LastModified by Organization Details LastModified Time cyclobenz aprine 10 mg tablet Take 1 tablet 3 times a day by oral route. active Not Available Not Available No t Available amoxicill in 500 mg capsule TAKE 4 CAPSULES BY MOUTH 1 HOUR PRIOR TO APPOINTM ENT 08/01 completed Not Available Not Available Not Available citalopra m 40 mg tablet TAKE 1 TABLET BY MOUTH EVERY DAY active Not Available Not Available No t Available ibuprofen 200 mg capsule take 1 capsule by oral route every 6 hours as needed 04/14 completed Prescrib ed Elsewher e: Yes Loca tion: [facility] odify By: luiz tz Encou nter DateTime : 08/28/19 12 07:33:11 PM Not Available Not Available Not Available Diflucan 150 mg tablet take 1 tablet by oral route once 11/28 completed Prescrib ed Elsewher e: No Locat ion: [facility] odify By: emmanuel Chilel ncounter DateTime : 10/20/19 16 04:26:39 PM Not Available Not Available Not Available acyclovir 400 mg tablet TAKE 1 TAB TWICE A DAY DAILY FOR SUPPRESI VE THERAPY active Not Available Not Available No t Available amoxicill in 500 mg tablet TAKE 4 TABLETS BY MOUTH 1 HOUR BEFORE DENTAL APPOINTM ENT 08/01 completed Not Available Not Available Not Available levothyro xine 75 mcg tablet TAKE 1 TABLET BY MOUTH EVERY DAY active Not Available Not Available No t Available nystatin- triamcino lone 100,000 unit/gram -0.1 % topical ointment APPLY TO THE AFFECTED AREA(S) BY TOPICAL ROUTE 2 TIMES PER DAY 08/01 completed Not Available Not Available Not Available alprazola m 0.25 mg tablet TAKE 1 TABLET 3 TIMES A DAY BY ORAL ROUTE NEEDED. active Not Available Not Available No t Available citalopra m 20 mg tablet TAKE 1 TABLET BY MOUTH TWICE A DAY active Not Available Not Available No t Available Valtrex 1 gram tablet take 1 tablet by oral route every 12 hours 12/12 completed Prescrib ed Elsewher e: No Locat ion: [facility] odify By: jose luis ahmadi DateTime : 11/24/19 17 03:30:00 PM Not Available Not Available Not Available clobetaso l 0.05 % topical ointment APPLY A THIN LAYER TO THE AFFECTED AREA(S) BY TOPICAL ROUTE 2 TIMES PER DAY for 2 weeks then once daily. active Not Available Not Available No t Available levofloxa blaine 500 mg tablet TAKE 1 TABLET BY MOUTH EVERY 24 HOURS FOR 7 DAYS 06/17 completed Not Available Not Available Not Available estradiol 0.01% (0.1 mg/gram) vaginal cream PLEASE SEE ATTACHED FOR DETAILED DIRECTIO NS active Not Available Not Available No t Available methylpre dnisolone 4 mg tablets in a dose pack 02/24 completed Not Available Not Available Not Available Vitamin D2 1,250 mcg (50,000 unit) capsule take 1 capsule by oral route every week 11/28 completed Prescrib ed Elsewher e: No Locat ion: [facility] odify By: luiz Gaviria nter DateTime : 11/13/19 16 01:22:19 PM Not Available Not Available Not Available Tums 200 mg (as calcium carbonate 500 mg) chewable tablet active Prescrib ed Elsewher e: Yes Loca tion: [facility] odify By: luiz garcia Encou nter DateTime : 08/28/19 12 07:33:11 PM Not Available Not Available Not Available buspirone 15 mg tablet TAKE 1 TABLET BY MOUTH TWICE A DAY active Not Available Not Available No t Available Vanquish 227 mg-194 mg-33 mg tablet 12/12 completed Prescrib ed Elsewher e: Yes Loca tion: [facility] odify By: jose luis ahmadi DateTime : 11/29/19 18 03:30:00 PM Not Available Not Available Not Available Vitamins and Minerals tablet active Prescrib ed Elsewher e: Yes Loca tion: [facility]jana [facility] odify By: shira eaton DateTime : 08/30/19 12 03:30:00 PM Not Available Not Available Not Available Vitamin D3 25 mcg (1,000 unit) capsule active Prescrib ed Elsewher e: Yes [facility] By: velvet vazquezuntlaurie DateTime : 11/24/19 17 03:30:00 PM Not Available Not Available Not Available Flexeril 5 mg tablet take 1 tablet by oral route 3 times every day 04/14 completed Prescrib ed Elsewher e: Yes Loca tion: [facility] odify By: shira eaton DateTime : 08/30/19 12 03:30:00 PM Not Available Not Available Not Available levothyro xine 04/14 completed Not Available Not Available Not Available famotidin e active Not Available Not Available Not Available ibuprofen 04/14 completed Not Available Not Available Not Available Tums 08/01 completed Not Available Not Available Not Available Zyrtec active Not Available Not Availa ble Not Available Vit 3 04/14 completed Not Available Not Available Not Available Zantac 50 mg/2 mL (25 mg/mL) injection solution infuse by intraven ous route every 8 hours over 06/17 completed Prescrib ed Elsewher e: Yes Loca tion: [facility] odify By: luiz garcia Encou nter DateTime : 08/28/19 12 07:33:11 PM Not Available Not Available Not Available Tirosint 13 mcg capsule take 1 capsule by oral route every day 05/08 completed Prescrib ed Elsewher e: Yes Loca tion: [facility] M odramesh By: duult z Adarsh ter DateTime : 12/13/19 09:15:00 AM Not Available Not Available Not Available Shingrix (PF) 50 mcg/0.5 mL intramusc ular suspensio n, kit PHARMACY ADMINIST ERED 06/17 completed Not Available Not Available Not Available ID NOW COVID-19 Test Kit TEST DIRECTED 06/17 completed Not Available Not Available Not Available Vitals Date Recorded Body height Body mass index (BMI) Body weight Systolic blood pressure Diastolic blood pressure Provider Name and Address Organization Details Last Updated DateTime 04/14/2021 162.56 cm 31.4 kg/m2 30924.4 g 167 mm[Hg] 92 mm[Hg] Pauline Reyna [facility] 1 12:12:04 Date Recorded Body height Body mass index (BMI) Body weight Systolic blood pressure Diastolic blood pressure Provider Name and Address Organization Details Last Updated DateTime 05/12/2021 162.56 cm 32.3 kg/m2 28286.37 g 146 mm[Hg] 76 mm[Hg] [facility] 17:59:56 Date Recorded Body height Body mass index (BMI) Body weight Systolic blood pressure Diastolic blood pressure Provider Name and Address Organization Details Last Updated DateTime 06/16/2021 162.56 cm 31.2 kg/m2 64268.81 g 131 mm[Hg] 76 mm[Hg] Pauline Reyna [facility] 2 17:01:39 Date Recorded Body height Body mass index (BMI) Body weight Systolic blood pressure Diastolic blood pressure Provider Name and Address Organization Details Last Updated DateTime 06/17/2022 162.56 cm 27.8 kg/m2 34954.96 g 172 mm[Hg] 85 mm[Hg] Pauline Reyna [facility] 3 12:45:26 Date Recorded Body height Body mass index (BMI) Body weight Systolic blood pressure Diastolic blood pressure Provider Name and Address Organization Details Last Updated DateTime 08/02/2023 162.56 cm 27.8 kg/m2 32045.96 g 153 mm[Hg] 82 mm[Hg] Pauline Reyna [facility] 11:01:22 Social History Question Answer Notes LastModified by Organizat ion Details LastModified Time Tobacco Smoking Status Former Smoker Pauline Reyna null, [facility] 06/17/2022 12:45:54 Do You Have An Advance Directive? No [email or web address] Information not available 04/14/2021 What Is Your Level Of Alcohol Consumption? Occasional [email or web address] Information not available 02/25/2020 How Many Years Have You Consumed Alcohol? 44 [email or web address] Information not available 04/14/2021 Are You Blind Or Do You Have Difficulty Seeing? No Information not available 05/12/2021 What Is Your Level Of Caffeine Consumption? Moderate [email or web address] Information not available 04/14/2021 How Much Tobacco Do You Chew? None Information not available 04/14/2021 In The 14 Days Before Symptom Onset, Have You Had Close Contact With A Laboratory-confir med COVID-19 While That Case Was Ill? No [email or web address] Information not available 06/17/2022 In The 14 Days Before Symptom Onset, Have You Had Close Contact With A Person Who Is Under Investigation For COVID-19 While That Person Was Ill? No [email or web address] Information not available 06/17/2022 Have You Been To An Area Known To Be High Risk For COVID-19? No [email or web address] Information not available 06/17/2022 Are You Deaf Or Do You Have Serious Difficulty Hearing? No [email or web address] Information not available 04/14/2021 What Type Of Diet Are You Following? REGULAR [email or web address] Information not available 04/14/2021 Do You Or Have You Ever Used E-cigarettes Or Vape? Never Used Electronic Cigarettes [email or web address] Information not available 06/17/2022 What Is The Highest Grade Or Level Of School You Have Completed Or The Highest Degree You Have Received? 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 [email or web address] Information not available 06/17/2022 Are There Any Guns Present In Your Home? No [email or web address] Information not available 04/14/2021 What Was The Date Of Your Most Recent Tobacco Screening? 06/17/2022 [email or web address] Information not available 06/17/2022 Do You Use Your Seat Belt Or Car Seat Routinely? Yes [email or web address] Information not available 04/14/2021 Do You Have Smoke And Carbon Monoxide Detectors In Your Home? Yes [email or web address] Information not available 04/14/2021 Do You Or Have You Ever Used Smokeless Tobacco? Never Used Smokeless Tobacco [email or web address] Information not available 06/17/2022 How Much Tobacco Do You Smoke? No [email or web address] Information not available 02/25/2020 Do You Feel Stressed (tense, Restless, Nervous, Or Anxious, Or Unable To Sleep At Night)? [id number] [email or web address] Information not available 04/14/2021 Do You Use Any Illicit Or Recreational Drugs? No [email or web address] Information not available 04/14/2021 Do You Use Sunscreen Routinely? Yes [email or web address] Information not available 04/14/2021 Have You Used IV Drugs? No [email or web address] Information not available 04/14/2021 Sex: Unknown Functional Status Question Answer Note LastModified by Organizat ion Details LastModified Time Do you have difficulty walking or climbing stairs? No [email or web address] Information not available 06/17/2022 Are you able to walk? YESWOREST [email or web address] Information not available 04/14/2021 Are you able to care for yourself? Yes [email or web address] Information not available 06/17/2022 Do you have difficulty dressing or bathing? No [email or web address] Information not available 06/17/2022 What is your exercise level? Occasional [email or web address] Information not available 02/25/2020 Mental Status None recorded. Family History Relationship Description Onset Age of this Age Resolved Age Notes LastModified by Organization Details LastModified Time Father History of rheumatic fever [email or web address] Not available 08/01 11:02:19 Father Intracranial tumor [email or web address] Not available 08/01 11:02:19 Brother History of rheumatic fever [email or web address] Not available 08/01 11:02:19 Brother Diabetes mellitus Not available 04/14 12:14:54 Mother Hypertensive disorder [email or web address] Not available 02/24 10:01:33 Maternal Grandmother Diabetes mellitus [email or web address] Not available 02/24 10:02:10 Maternal Grandmother Coronary arterioscler osis [email or web address] Not available 08/01 11:02:19 Paternal Grandmother Malignant neoplasm of uterus [email or web address] Not available 02/24 10:02:27 Paternal Aunt Malignant tumor of breast haujxnti85 Not available 02/24 10:02:38 Sister Hypertensive disorder 53 [email or web address] Not available 08/01 11:02:19 Notes:Brother: Rheumatic fev er Father: Rheumatic fever, Brain tumor Maternal grandmother: Diabetes mellitus, Coronary artery disease Mother: Hypertension Paternal aunt: Cancer, breast Paternal grandmother: Uterine Cancer Medical History Condition Response Allergies (Food, seasonal, environmental ) Y Other N Blood Transfusion N Drug/Latex Allergies/Reactions N Breast Cancer N Dermatologic Disorders N Lung Disease N Defects or Inherited Disease N Breast Problem N Gestational Diabetes N Hematologic disorders N Anesthesia Complications N History of STI N Deep Vein Thrombosis N Polycystic ovary syndrome N Anxiety Disorder Y Autoimmune disease N Arthritis Y Infertility N Polyps N Acid Reflux (GERD) Y History of abnormal pap Y Cancer N Stroke N Varicosities N Neurologic/Epilepsy N Endometriosis N High Cholesterol N Headaches Y Fibromyalgia N Kidney Disease N Heart Problems N Kidney or Bladder Problems N Thyroid Problems Y GI Problems Y Eating Disorder N Anemia N Art (IVF or FET) N Psychiatric Illness Y Ovarian Cancer N Diabetes N Pulmonary (TB, Asthma) N Hepatitis/Liver Disease N No Past Medical History N Eczema N Urinary Tract Infection N Abuse/Domestic Violence N Asthma N Trauma/Violence N Depression/ depression Y Heart Disease N Pre-Eclampsia N Hypertension N Osteoporosis N Thrombophilias N Gynecological History Statement/Question Response Date of Last Mammogram 03/01/2023 Date of LMP 05/01/2006 N On BCP's at Conception? N STIs/STDs Yes Was last menstrual period normal Y HPV Vaccine N Duration of Flow (days) 3 50 Current Control Method Menopause Age at First Child 31 Date of Last Colonoscopy 05/07/2021 Most Recent Bone Density 11/05/2014 Sexually Active? N Age of first menstrual cycle 18 Date of Last Pap Smear 08/02/2023 Sexual Problems? N LMP Unknown Desired Control Method Condoms 05/07/2021 Y Obstetrics History GPAL:G 2 P 2 0 0 2 Type Value Full Term 2 Living 2 Total 2 Past Encounters Encounter ID Performer Location Encounter Start Date Encounter Closed Date Diagnosis/Indication Diagnosis SNOMED-CT Code Diagnosis ICD10 Code Diagnosis Note [id number] [address]ha [address] [facility] [address],[place] [address] 02/25/2020 09:36:48 02/25/2020 14:09:55 Gynecologic examination 75992088 Z01.419 [id number] [facility] [address],[place] [address] 04/14/2021 11:43:21 04/14/2021 13:14:54 Vaginal irritation 113626266 N89.8 [id number] Keysha Sim[address] [facility] [address],[place] [address] 05/12/2021 17:48:19 05/13/2021 17:10:42 Skin irritation 259458728 L30.9 f/u pending pathology, pt troy well [id number] Keysha Sims [facility] [address],[place] [address] 06/16/2021 16:41:47 06/16/2021 17:19:10 Genital lichen sclerosus 811589312 L90.0 apply clobetasol to two small areas x 1 week then prn, with sxs, f/u wwe 03/2022 [id number] Keysha Sims [facility] [address],[place] [address] 06/17/2022 12:20:29 06/17/2022 13:01:07 Gynecologic examination 50595123 Z01.419 Z11.51 [id number] [facility] [address],[place] [address] 08/02/2023 10:53:11 08/02/2023 11:38:37 Atrophic vaginitis 37107518 N95.2 Health Concerns Section Related Observation LastModified by Organization Detai ls LastModified Time None Recorded Concern Status LastModified by Organization Details LastModified Time None Recorded Advance Directives Directive N: Payers Encounter Date Sequence Insurance Name Policy Number Policy Clark Covered Member ID Clark Member ID Guarantor Name 04/14/2021 1 [place] Jessica August [id number] Jessica 05/12/2021 [place] Jessica August [id number] Jessica 06/16/2021 [place] Jessica August [id number] Jessica 06/17/2022 1 [facility] (MEDICARE REPLACEMENT/A DVANTAGE - POS) [id number] Jessica August [id number] Jessica 08/02/2023 1 [facility] (MEDICARE REPLACEMENT/A DVANTAGE - POS) [id number] Jessica August [id number] Jessica August Notes Date Note Type Note Provider Name and Address Organization Details Recorded Time 04/14/2021 text/html Annual GYNReport ed bypatient.Breast:N o breast pain; No breast lump; No nipple discharge Sexual complaints:No sexual complaints; No pain during intercourse; Normal libido Menopausal Symptoms:No menopausal symptoms; Normal vaginal lubrication Psychological symptoms:No depression; No anxiety; No PMDD Preventive measures:Encourage self breast examination; Encourage regular exercise; Encourage no tobacco use; Encourage regular mammograms starting age 40; Mammogram performed within the past yearNotes:pt thinks right side has gotten bigger on vulva, and now irritated on occasion Keysha Sims CNM [address], [place], [address], [facility] 04/14/2021 12:43:33 05/12/2021 text/html pt present for biopsy of vulvar, reviewed risk including infection, bleeding, consent signed, area did not improve with rx for nystatin/triamcina lone, suspect lichens Keysha Sims CNM [address], [place], [address], [facility] 05/14/2021 10:01:29 06/16/2021 text/html lichen sclerosis , sxs resolved, doing well, no complaints Keysha Sims CNM [address], [place], [address], [facility] 06/16/2021 17:15:03 06/17/2022 text/html Annual GYNReport ed bypatient.History: no gynecologic complaints; no change in interval history Breast:No breast pain; No breast lump; No nipple discharge Sexual complaints:No sexual complaints; No pain during intercourse; Normal libido Menopausal Symptoms:No menopausal symptoms; Normal vaginal lubrication Psychological symptoms:No depression; No anxiety; No PMDD Preventive measures:Encourage self breast examination; Encourage regular exercise; Encourage no tobacco use; Encourage regular mammograms starting age 40Notes:hx lichen scerlosus, retired, traveling, getting another nicole Keysha Sims CNM [address], [place], [address], [facility] 06/17/2022 13:00:15 08/02/2023 text/html Annual GYNReport ed bypatient.History: no gynecologic complaints; age 68 discussed pap hx, deferred pap occ bartholin cyst that resolves with sitz bath Menstrual cycle:Normal menses Urinary symptoms:No hematuria; No incontinence Vulva:No genital lesion Vagina:Normal vaginal discharge Breast:No breast pain; No breast lump; No nipple discharge Sexual complaints:No sexual complaints; No pain during intercourse; Normal libido Menopausal Symptoms:No menopausal symptoms; Normal vaginal lubrication Psychological symptoms:No depression; No anxiety; No PMDD Preventive measures:Encourage self breast examination; Encourage regular exercise; Encourage no tobacco use; Encourage regular mammograms starting age 40; Mammogram performed within the past year; Up to date on colonoscopy screeningNotes:maty kramer nicole naqvi born october 20[birth year], lives [place] insomnia , achiness in her bones wondering about hormones Keysha Sims, CNM [address], [place], [address], [facility] 08/02/2023 11:35:33 OBGyn Episode Ob Episode Information Episode Created Date Number of Fetuses Patient Bloodtype Patient rh Status Prepregnancy Weight lbs Domestic Partner Domestic Partner Phone Father Name Casino Cashier Manager Status 02/25/20 20 1 CLOSED Fetus Data First Name Last Name Admitted to NICU Weight (g) Sex Living Outcome Pediatric Complications Fetus ID Race Codes Race Delivery Type 2721.55 2 M Full Term [id number] Vaginal Delivery Yovanny Calculation Initial Yovanny Date Initial Exam Date Initial Exam Provider Initial Ultrasound Date Last Menstrual Period Date Ultra Sound Weeks Gestation 0 Eighteen To Twenty Week Yovanny Update Ultra Sound Date Fundal Height At Umbil Quickening Date Ultra Sound Latest Weeks Gestation Final Yovanny Confirmed By Final Yovanny Confirmed Date Final Yovanny Date Ultra Sound Latest Days Gestation 0 0 Menstrual History Last Menstrual Date Menses Monthly On Bcp Conception Prior Menses Frequency Hcg Plus Date Menarche Onset Age Delivery Information Delivery Date Delivery Type Labor Anesthesia Weeks Gestation Incision Type Labor Labor Length Hrs Delivered By Post Complications Tubal Sterilization Discharge Date Comments 0 39 Discharge Information Feeding Method Contraceptive Method Maternal HG B and HCT Levels Ob Episode Information Episode Created Date Number of Fetuses Patient Bloodtype Patient rh Status Prepregnancy Weight lbs Domestic Partner Domestic Partner Phone Father Name Casino Cashier Manager Status 02/25/20 20 1 CLOSED Fetus Data First Name Last Name Admitted to NICU Weight (g) Sex Living Outcome Pediatric Complications Fetus ID Race Codes Race Delivery Type 2721.55 2 F Full Term [id number] Vaginal Delivery Yovanny Calculation Initial Yovanny Date Initial Exam Date Initial Exam Provider Initial Ultrasound Date Last Menstrual Period Date Ultra Sound Weeks Gestation 0 Eighteen To Twenty Week Yovanny Update Ultra Sound Date Fundal Height At Umbil Quickening Date Ultra Sound Latest Weeks Gestation Final Yovanny Confirmed By Final Yovanny Confirmed Date Final Yovanny Date Ultra Sound Latest Days Gestation 0 0 Menstrual History Last Menstrual Date Menses Monthly On Bcp Conception Prior Menses Frequency Hcg Plus Date Menarche Onset Age Delivery Information Delivery Date Delivery Type Labor Anesthesia Weeks Gestation Incision Type Labor Labor Length Hrs Delivered By Post Complications Tubal Sterilization Discharge Date Comments 7 38 Discharge Information Feeding Method Contraceptive Method Maternal HG B and HCT Levels
--- OUTSIDE RECORDS SUMMARY | 2024-08-27 00:49 | XMS_ITS | Continuity of Care Document ---
Author Organization [facility] Address [address] [place] [address] Phone Care Team Providers Care Second Officer Name Role Phone Thomas Adam MD Unavailable Unavailable Allergies, Adverse Reactions, Alerts Substance Reaction Status Criticality DIPHENHYDRAMINE HCL Active No Infor mation CIPROFLOXACIN HCL Active No Informa tion ciprofloxacin Active No Information Medications Medication Instructions Dosage Effective Dates (start - stop) Status Comments VENLAFAXINE HCL (unknown strength) take 1 tablet by oral route 3 times every day with food Not Available - Active LEVOTHYROXINE SODIUM (unknown strength) take 1 tablet by oral route every day Not Available - Active Procedures Procedure Date Medical Records Medical Records Medical Records OFFICE/OUTPATIENT VISITROSAMARIA Advance Directives Directive Yes / No Effective Date File Name No Information Encounters Encounter Description Practice Location Reason(s) For Visit Diagnoses Date Provider Providers Copied on Encounter [facility] [address] [place] [address] [address], [place], [place], [id number], tel:[phone] [facility] No Information 0- 0 Kia Guzman. [address], [id number] , . [phone], [place], [place], [id number], tel:[phone] [facility] No Information 3-201 9 Kia Guzman. [address], [id number] , [place]. tel:[phone] [facility], [address], [place], [place], [id number], [place] tel:[phone] [facility] No Information Carl- 9 iKa Guzman. [address], [address], [place], [place], [id number] , [place]. [phone] OFFICE/OUTPATI ENT VISIT, [facility], [address], [place], [place], [id number], [place] tel:[phone] [facility] trauma OD (chief complaint) Subconjunctiva l hemorrhage of right eyeOrbital floor (blow-out) closed fractureS/P LASIK (laser assisted in situ keratomileusis ) of both eyes Jan- 8 Raoof Donnierehan. [address], [place], [place], [id number] , [place]. [phone] Family History Family Member Type Diagnosis Age At Onset Problem (finding) Family history of degenerative disorder of macula Payers Payer name Insurance type Covered democrat ID Authoriza tion(s) No Information Social History Type Description Quantity Date Captured Comments Sex Female Smoking Status No Information Chief Complaint And Reason For Visit No Information Reason For Referral Reason For Referral No Information History Of Present Illness Encounter Date Complaint History Of Prese nt Illness trauma OD The 63 year old female presents for evaluation of trauma OD in the right eye. Pt states she was at a open house on Monday and while touring the home, she slipped on a rug and fell face first. Pt states all the force from the fall impacted her right eye / right side of face. Pt went to the ER and they state pt has a facial fracture / blowout. Pt states VA OD is a little blurry and unclear, but overall seems stable. Pt can still make out objects. Pt states she has not noticed any visual changes or decreases. Pt states OD is very swollen and tender to the touch. Pt states there is a lot of watering in OD. Pt denies double vision, flashes and floaters. Pt states she has experienced headaches around the impact site since the injury, x 2-3 days. Pt states she has not really been able to open OD for the last 2-3 days. Unable to perform diagnostic scans, IOP check, and dilation OD. Pt waiting for doctor.Pt states she is not diabetic and does not have high blood pressure. Gtts: None Functional Status Date Functional Assessmen t No Information Instructions Date Instruction Additional Infor mation f/u with maxillofaci al surgery, with me PRN Related to Orbital floor (blow-out) closed fracture Impression/Plan Related to Orbit al floor (blow-out) closed fracture Impression/Plan Related to S/P L ASIK (laser assisted in situ keratomileusis) of both eyes Impression/Plan Related to Subco njunctival hemorrhage of right eye Assessments Type Assessment Date No Information Patient Care Teams Name Effective Dates (start - stop) Status Members No Information
--- NOTE | 2024-08-27 07:24 | WPDHPUPDATE1 ---
History and Physical Update Update Date/Time: 08/27/24 07:24 History and Physical has been reviewed, including an updated exam of the patient. There are NO changes in the patient's condition. Risks, benefits, and alternatives have been discussed and questions answered. Patient agrees to proceed with procedure.
[2024-08-27] MEDS: LACTATED RINGERS 1,000 ML 30 ML IV CONT ×2 (11:47→15:17)
[2024-08-27] MEDS: ACETAMINOPHEN 500 MG TABLET 1000 MG PO (11:47)
[2024-08-27] MEDS: CELECOXIB 200 MG CAPSULE PO (11:48)
--- NOTE | 2024-08-27 12:27 | WPDANESEPPF ---
Anes - Initial Pre Proc Eval Procedure: Operation Date: 08/27/24 13:00 Proposed Procedures p Open Reduction Internal Fixation Right Distal Radius Fracture - Yosef Ramirez MD Date/Time: 08/27/24 12:27 Surgeon: Yosef Ramirez MD Pre Op Diagnosis: right distal radius fracture Patient Data Age: 69 Gender: F Height: 1.63 m Weight: 75.4 kg Last Vital Signs Temp 98.2 F 08/27/24 11:41 Pulse 73 08/27/24 11:41 BP 179/75 H 08/27/24 11:41 Pulse Ox 100 08/27/24 11:41 O2 Del Method Room Air 08/27/24 11:41 Allergies Allergy/AdvReac Type Severity Reaction Status Date / Time No Known Allergies Allergy Verified 08/27/24 11:19 Home Medications ?Medication ?Instructions ?Recorded ?Confirmed ?Type buspirone 15 mg tablet 15 mg PO BID 08/15/24 08/23/24 History citalopram 40 mg tablet 40 mg PO HS 08/15/24 08/23/24 History estradiol 0.01% (0.1 mg/gram) 1 appful vaginal 2XW 08/15/24 08/23/24 History vaginal cream hydrocodone 5 mg-acetaminophen 325 1 tablet PO Q8H PRN pain #10 tabs 08/15/24 08/23/24 Rx mg tablet levothyroxine 75 mcg tablet 75 mcg PO QAM 08/15/24 08/23/24 History amoxicillin 875 mg-potassium 1 tablet PO Q12H 08/23/24 08/23/24 History clavulanate 125 mg tablet calcium carb-ergocalciferol (vit 1 tablet PO 3XW 08/23/24 08/23/24 History D2) 600 mg calcium-200 unit tablet cetirizine 10 mg capsule (All Day 10 mg PO DAILY PRN allergy symptoms 08/23/24 08/23/24 History Allergy (cetirizine)) cholecalciferol (vitamin D3) 50 2,000 unit PO ONCE 08/23/24 08/23/24 History mcg (2,000 unit) capsule cyclobenzaprine 10 mg tablet 10 mg PO BID PRN muscle spasm 08/23/24 08/23/24 History famotidine 20 mg tablet 20 mg PO DAILY 08/23/24 08/23/24 History ferrous sulfate 27 mg iron tablet 27 mg PO 3XW 08/23/24 08/23/24 History (High Potency Iron) multivitamin (Daily Multi-Vitamin 1 tablet PO DAILY 08/23/24 08/23/24 History tablet) Patient hx anesthesia problems: none Family hx anesthesia problems: none Results Review: All pre-operative results and documents have been reviewed as part of the pre-operative evaluation. [facility] Social History Social History Smoking status: Never smoker Tobacco type: cigarettes Alcohol intake: current Anes - Eval Final PreProcedure Day of Procedure 08/27/24 12:27 Patient weight: normal Heart: regular rate and rhythm Lungs: clear to auscultation Airway: Mallampati scale class II Neurological: alert and oriented Last oral intake: >/= 8 hours ASA classification: III Emergent: no Anesthetic plan: proceed Anesthesia type and monitoring: general LMA and standard monitoring Results Review: All pre-operative results and documents have been reviewed as part of the pre-operative evaluation. Informed Consent: The patient's anesthetic plan and its attendant risks and benefits were discussed with the patient/family/POA. Questions were solicited and answers provided to the satisfaction of the patient/family/POA.
[2024-08-27] MEDS: ceFAZolin 2 GM/D5W 50 ML 2 GM/50 ML BAG IVPB (12:52)
[2024-08-27] MEDS: BUPivacaine HCL 0.5% 10 ML AMP 30 ML INFILTRATE (13:46)
--- NOTE | 2024-08-27 15:24 | W.PM.PROC2 ---
Procedure Note - Detailed Date of Procedure 08/27/24 Pre-op Diagnosis right distal radius fracture Post-op Diagnosis Same Procedure Performed ORIF RIGHT DISTAL RADIUS FRACTURE Surgeon Yosef Ramirez MD Anesthesia General Description of Procedure THE RIGHT UPPER EXTREMITY WAS PREPPED AND DRAPED IN THE STERILE FASHION. A STANDARD HENRYS APPROACH WAS USED TO THE VOLAR WRIST. DISSECTION THROUGH THE SKIN AND SUBCUTANEOUS TISSUE WAS PREFORMED. THE FCR TENDON WAS IDENTIFIED. THE RADIAL ARTERY WAS IDENTIFIED AND RETRACTED. THE THE FLEXOR POLLICIS AND THE COMMON FLEXOR TENDONS WERE IDENTIFIED AND RETRACTED. THE PRONATOR QUADRATUS WAS IDENTIFIED AND INCISED EXPOSING THE FRACTURE. IT WAS HIGHLY COMMINUTED. A TRIAL REDUCTION WAS PREFORMED AND FIXED WITH A K WIRE. NEXT A BIOMET DISTAL RADIUS LOCKING PLATE WAS PLACED BRIDGING THE FRACTURE FRAGMENTS. SCREWS WERE PLACED DISTALLY AND PROXIMALLY. THE DISTAL SCREWS WERE IMAGED AND FOUND TO BE EXTRA ARTICULAR. C ARM IMAGES WERE PREFORMED AND HARDWARE AND FRACTURE FRAGMENTS WERE IN GOOD POSITION. THE TOURNIQUET WAS DEFLATED AND THE BLEEDERS WERE CAUTERIZED. THE FASCIA AND SUB CUTANEOUS LAYERS WERE APPROXIMATED WITH 3-0 VICRYL. THE SKIN WAS APPROXIMATED WITH 3-0 STRATAFIX AND DERMABOND. STERILE DRESSING AND SPLINT WAS APPLIED. PATIENT WAS EXTUBATED. Estimated Blood Loss 20 Complications No immediate complications Condition Stable Disposition PACU
[2024-08-27] MEDS: fentaNYL CITRATE INJ (*CRX) 100 MCG/2 ML VIAL 25 MCG IV PUSH ×4 (15:38→15:46)
[2024-08-27] MEDS: ONDANSETRON INJ 4 MG/2 ML VIAL IV PUSH (16:06)
[2024-08-27] MEDS: oxyCODONE HCL (*CRX) 5 MG TAB IR PO (16:30)
== END 2024-08-27 17:05 | disposition home or self-care (01) ==
PROVIDERS: PCP Physician Assistant; Visit Provider Orthopaedic Surgery
PROC: (CPT 25575; principal; 2024-08-27 13:00)
DX: S52.551A Other extraarticular fracture of lower end of right radius, initial encounter for closed fracture (principal); Z79.891 Long term (current) use of opiate analgesic; X58.XXXA Exposure to other specified factors, initial encounter
CPT/HCPCS: 25609; 99199; A9270; C1713; J0690; J1100; J1171; J2003; J2250; J2405; J2704; J3010; J7120

== ENCOUNTER 2024-10-31 15:15 | Outpatient (RCR) | payer MEDICARE, SELFPAY ==
--- NOTE | 2024-09-13 11:58 | OTOPEVAL1 ---
Assessment and note entered by Roney Jay, ANGI/Juancho, JALEESAT OT Evaluation Information 09/13/24 Assessment Status Evaluation Diagnosis Z98.890, Z87.81 Subjective Information Patient fell and fractured her right distal radius . She is s/p ORIF 08/27/24. She is right handed. She has been favoring her left hand for ADLs. She has a removable brace that she does not have with her today. She has progressed to being able to brush her teeth with her right hand. Reported Pain Level Pain Score 1/10 at rest 7/[address]UD Assessment OT Clinical Summary Patient referred to OT s/p ORIF of the right distal radius. She is 2.5 weeks out from surgery. She presents to the clinic without her immobilizer and was educated on wearing the immobilizer for continued protection unless she is performing her HEP or bathing. She presents with residual edema, pain, and stiffness that limits functional ROM. Educated on gentle active ROM HEP of the forearm, wrist, fingers, and thumb. She demonstrates excellent understanding. Continued follow up indicated for instructions on HEP progression, use of modalities, manual therapy, and therapeutic exercise to facilitate optimal functional ROM, strength, and use of her right, dominant UE. Plan of Care Interventions Therapeutic Exercise,Manual Therapy,Therapeutic Activities,Hot Pack/Cold Pack,Paraffin OT Services Indicated Yes Treatment Frequency and 1-2x/week for 8 visits Duration These treatments will address the objective and functional deficits as defined above. The patient will be advanced safely and appropriately in order for the patient to progress towards his/her prior level of function. Additional exercises will be introduced and as well as a comprehensive home exercise program upon discharge, if needed, ?to ensure carryover of functional gains achieved in the clinic. This treatment plan has been reviewed and agreement upon by the patient.
--- NOTE | 2024-09-13 11:59 | OPREHPOC ---
Outpatient Therapy Plan of Care This is a Multidisciplinary Plan of Care that may contain components documented by all disciplines (PT, OT, and ST.) OT Problem 1 OT Problem #1 Knowledge Deficit OT Goal 1 Goal / Goal Update Patient to be independent with instructed materials. Target Visit 8 OT Problem 2 OT Problem #2 Impaired Range of Motion OT Goal 1 Goal / Goal Update Patient to increase (R) UE active ROM in prep for functional strengthening/use: 1. forearm supination to 80 deg. 2. forearm pronation to 80 deg. 3. wrist flexion to 60 deg. 4. wrist extension to 60 deg. 5. composite thumb flexion to the base of digit V with at least 30 deg. of thumb IP flexion Target Visit 8 OT Problem 3 OT Problem #3 Impaired Strength OT Goal 1 Goal / Goal Update * Hold strengthening until 6 weeks post-op () * 1. Patient to be able to progress to 1 lb. forearm and wrist strengthening in all planes against gravity x10 reps. Target Visit 8
--- NOTE | 2024-10-31 15:58 | OTOPDC ---
Assessment and note entered by Roney Jay, OTR/L, CHT OT D/C /07/23 Assessment Status Discharge Diagnosis Z98.890, Z87.81 Subjective Information Patient reports she is making progress in the right wrist. She reports she is doing well, but continues to feel weak and notices with heavy lifting. She is back to cooking, cleaning, dishes, and lifting pots and pans. She was experiencing intermittent tingling in the hand and this has subsided. Patient reports she has not been doing her exercises due to having a lot going on lately. Measurements since the start of care: Supination improved from 55 to 75 deg. Passive is 85 deg. Pronation improved to normal limits. Wrist flexion improved from 40 to 55 deg. Wrist extension improved from [address] improved from 10 to 15 deg. UD improved from 15 to 20 deg. Finger and thumb ROM is WNL. (R) Visiting Nurse strength 25 lbs. (L) Visiting Nurse strength 46 lbs. Reported Pain Level Pain Score 0: Self Report Additional Pain Score Comments 0/10 pain at rest 3/10 pain if she lifts something too heavy Assessment OT Clinical Summary Patient referred to OT s/p ORIF of the right distal radius. She has progressed with functional ROM and strength of her right wrist/hand. 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 Her strength in all of these areas has progressed from a month ago, however. Reviewed her HEP and she is independent with all materials. Reiterated the importance of strengthening. She verbalizes good understanding. D/C OT with patient independent with HEP. Plan of Care OT Services Indicated Yes
== END 2024-11-22 07:46 | disposition home or self-care (01) ==
LOC: ANHGOSHOT 15:15
PROVIDERS: PCP Physician Assistant; Visit Provider Orthopaedic Surgery
DX: Z47.89 Encounter for other orthopedic aftercare (principal); Z98.890 Other specified postprocedural states; Z87.81 Personal history of (healed) traumatic fracture
CPT/HCPCS: 97018; 97110; 97140; 97165

== ENCOUNTER 2025-01-27 09:19 | Outpatient (CLI) | payer MEDICARE, SELFPAY ==
--- NOTE | ~2025-01-27 | DEXA_ITS ---
Bone Density Report Name: KENNY KINCAID Age: 69 Sex: Female Ethnicity: White Date of : 1955 Indication: postmenopausal; screening for osteoporosis; height loss; history of glucocorticoids; Referring Provider: Keysha Sims Study: Bone densitometry was performed. Exam Date: January 27, 2025 Accession number: [id number] Bone Density: Region BMD T-score Z-score Classification AP Spine(L1-L4) 1.116 0.6 2.6 Normal Femoral Neck (Left) 0.891 0.4 2.1 Normal Total Hip (Left) 0.910 -0.3 1.1 Normal World Health Organization criteria for BMD impression classify patients as: Normal (T-score at or above -1.0), Osteopenia (T-score between -1.0 and -2.5), or Osteoporosis (T-score at or below -2.5). 10-year Fracture Risk: FRAX not reported because: All T-scores for Spine Total, Hip Total, Femoral Neck at or above -1.0 Clinical Information Provided by Patient: Has taken Glucocorticoids Has used the following medications: Vitamin D, Calcium Patient maximum height was 65.5 Menopause Age: 52 Drinks caffeinated beverages Onset of menses at age 17 Number of children 2 Missed period for more than 6 months in a row Impression: The patient has normal bone mass. The patient has risk factors, including: history of glucocorticoid therapy. Discussion: BONE DENSITY IS ABOVE THE MINIMUM DESIRABLE LEVEL AT ALL SKELETAL SITES TESTED. This patient?s bone mineral density is above the minimum desirable level (T-score -1.0 or better) at all sites measured. The patient should follow a healthful lifestyle (good nutrition with adequate calcium and vitamin D, and appropriate weight-bearing exercise). Follow-Up: Consider repeating this study in 5 years or sooner if there is some new clinical indication. Reported by: HELIO on 01/27/2025 9:42:00 AM. Reviewed, dictated and finalized at location A.
== END 2025-01-27 09:20 | disposition home or self-care (01) ==
LOC: MICIMG 09:20
PROVIDERS: PCP Physician Assistant; Visit Provider Advanced Practice Midwife
DX: Z78.0 Asymptomatic menopausal state (principal)
CPT/HCPCS: 77080